=== PATIENT | female | born 1940 | race Caucasian/White ===

== ENCOUNTER 2017-09-15 20:08 | Emergency (ER) | payer OTHER, MEDICARE ==
--- OUTSIDE RECORDS SUMMARY | 2017-09-15 20:10 | XMS REPORT | Clinical Summary ---
:1940 Author Organization [facility] Address [address] [place] [address] Care Team Providers Name Role Phone Karla Blood PA-C Primary Care Provider Allergies Active Allergy Reactions Severity Noted Date Comments Codeine GI Intolerance 01/23/2017 Current Medications Prescription Sig. Disp. Refills Start Date End Date Status allopurinol (ZYLOPRIM) 300 daily. 01/13/2016 Active MG tablet atorvastatin (LIPITOR) 20 daily. 12/13/2015 Active MG tablet BUMETanide (BUMEX) 1 MG 2 (two) times a 12/13/2015 Active tablet day. clopidogrel (PLAVIX) 75 mg daily. 01/13/2016 Active tablet glimepiride (AMARYL) 4 MG 2 (two) times a 12/30/2015 Active tablet day. SYNTHROID 150 mcg tablet daily. 12/31/2015 Active losartan (COZAAR) 25 MG daily. 02/01/2016 Active tablet metFORMIN XR 1,000 mg 2 (two) 12/29/2015 Active (GLUCOPHAGE-XR) 500 mg 24 times a day. hr tablet metOLazone (ZAROXOLYN) 5 01/26/2016 Active MG tablet metoprolol succinate XL 01/13/2016 Active (TOPROL-XL) 50 mg 24 hr tablet KLOR-CON M20 20 mEq CR 12/13/2015 Active tablet spironolactone (ALDACTONE) 2 (two) times a 02/11/2016 Active 25 MG tablet day. niacin (NIASPAN Take 500 mg by Active EXTENDED-RELEASE) 500 MG mouth nightly. CR tablet carisoprodol (SOMA) 350 MG Take 350 mg by Active tablet mouth 4 (four) times a day as needed for muscle spasms. ergocalciferol (VITAMIN Take 50,000 Units Active D2) 50,000 unit capsule by mouth once a week. aspirin 325 MG tablet Take 325 mg by Active mouth daily. CALCIUM CARB/VIT Take by mouth 2 Active D3/MINERALS (CALCIUM 600 + (two) times a day. MINERALS ORAL) ASCORBATE CALCIUM (VITAMIN Take by mouth 2 Active C ORAL) (two) times a day. magnesium oxide (MAG-OX) Take 400 mg by Active 400 mg tablet mouth daily. FERROUS SULFATE, DRIED Take by mouth 2 Active (IRON, DRIED, ORAL) (two) times a day. cinnamon bark 500 mg Take 500 mg by Active capsule mouth daily. cyanocobalamin 1000 MCG Take 1,000 mcg by Active tablet mouth daily. omega-3 fatty Take by mouth. Active acids-vitamin E (FISH OIL) 1,000 mg capsule biotin 10,000 mcg capsule Take by mouth. Active Active Problems Problem Noted Date Bilateral carpal tunnel syndrome 01/23/2017 Encounters Date Type Specialty Care Team Description 01/23/2017 Office Visit Orthopedic Surgery Rob Hensley Bilateral carpal tunnel III, syndrome (Primary Dx) after 09/14/2016 Family History Medical History Relation Name Comments Stroke Father Neuromuscular disorder Mother Relation Name Status Comments Father Mother Social History Tobacco Use Types Packs/Day Years Used Date Never Smoker Smokeless Tobacco: Never Used Alcohol Use Drinks/Week oz/Week Comments No Sex Assigned at Date Recorded Not on file Last Filed Vital Signs Vital Sign Reading Time Taken Blood Pressure - - Pulse - - Temperature - - Respiratory Rate - - Oxygen Saturation - - Inhaled Oxygen Concentration - - Weight 132 kg (292 lb) 01/23/2017 10:21 AM MULTIMEDIA COORDINATOR Height 160 cm (5' 3") 01/23/2017 10:21 AM MULTIMEDIA COORDINATOR Body Mass Index 51.73 01/23/2017 10:21 AM MULTIMEDIA COORDINATOR Plan of Treatment Health Maintenance Due Date Last Done Comments BREAST CANCER SCREENING 1992 COLON CANCER SCREENING 1992 SHINGRIX VACCINE (#1) 1992 ZOSTER VACCINE 2002 PNEUMOCOCCAL POLYSACCHARIDE VACCINE AGE 65 AND OVER 05/05/2007 PNEUMOCOCCAL-13 05/05/2007 INFLUENZA VACCINE 09/12/2017 Procedures Procedure Name Priority Date/Time Associated Diagnosis Comments ID INJECT CARPAL Routine 01/24/2017 9:32 AM Bilateral carpal Results for this TUNNEL MULTIMEDIA COORDINATOR tunnel syndrome procedure are in the results section. after 09/14/2016 Results Hand/Upper Extremity Injection/Arthrocentesis (01/24/2017 9:32 AM) Narrative Performed At Rob Hensley III, MD 01/24/20179:32 AM Bilateral carpal tunnel syndrome injection Date/Time: 01/23/2017 11:35 AM Consent given by: patient Supporting Documentation Indications: diagnostic and therapeutic Procedure Details Condition: carpal tunnel syndrome Site: Bilateral carpal tunnel Preparation: Patient was prepped and draped in the usual sterile fashion Right side: Needle size: 25 G Approach: anterior Right carpal tunnel medications administered: 40 mg methylPREDNISolone acetate 40 mg/mL; 1 mL lidocaine 10 mg/mL (1 %) Patient tolerance: patient tolerated the procedure well with no immediate complications Left side: Needle size: 25 G Approach: anterior Left carpal tunnel medications administered: 40 mg methylPREDNISolone acetate 40 mg/mL; 1 mL lidocaine 10 mg/mL (1 %) Patient tolerance: patient tolerated the procedure well with no immediate complications after 09/14/2016 Insurance Payer Benefit Plan / Group Subscriber ID Type Phone Address MEDICARE MEDICARE PART A AND B xxxxxxxxxx Medicare [place], [place] AARP AARP SUPPLEMENT xxxxxxxxxxx Commercial
--- OUTSIDE RECORDS SUMMARY | 2017-09-15 20:11 | XMS REPORT | Continuity of Care Document ---
:1940 Author Organization Interface Problems Problem Status Onset Classification Date Comments Source Date Reported BACK PAIN Active 02/04/20 Condition 04/07/2013 Medical 13 Group EDEMA Active 07/23/19 Condition 04/07/2013 Medical 13 Group ARTERIOSCLEROTIC Active 07/23/19 Condition 04/07/2013 Medical HEART DISEASE 13 Group PLEURISY Active 06/06/19 Condition 04/07/2013 Medical 13 Group SPINAL STENOSIS Active 04/09/19 Condition 04/07/2013 Medical 13 Group MORBID OBESITY Active 01/17/20 [facility] SWELLING MASS OR Active 01/16/20 Condition 04/07/2013 [facility] LUMP IN HEAD AND 12 Group NECK 787.1 Active 08/07/19 [facility] 789.00 Active 07/07/19 [facility] OBESITY Active Condition 04/07/2013 Medical Group DM Active Condition 04/07/2013 Medical Group HYPERTENSION Active Condition 04/07/2013 Medical Group ATHEROSCLEROSIS OF Active Condition 04/07/2013 [facility] AORTA Group MORBID OBESITY Active [facility] HEARTBURN Active [facility] Medications Medication Details Route Status Patient Ordering Order Source Instructions Provider Date BUMETANIDE 1 MG 1 or 2 p.o. Active 07/22[facility] Medical TABS q.a.m. 2012 Group CEFTIN 500 MG one p.o. Active 06/05[facility] Medical TABS b.i.d. 2012 Group DEXPAK 10 DAY as directed Active 06/05[facility] Medical 1.5 MG TABS 2012 Group LISINOPRIL-HYDRO 1 QD Active 04/09[facility] CHLOROTHIAZIDE 2013 Group 11/23.5) METFORMIN HCL 1 TID Active 04/09[facility] Medical 500 MG TABS 2012 Group SPIRONOLACTONE 1 QD Active 04/09[facility] Medical 25 MG TABS 2012 Group LEVOXYL 125 MCG tab 1 po daily Active 04/09[facility] Medical TABS 2012 Group (LEVOTHYROXINE SODIUM) D CAPS 1 MONTHLY Active 04/09[facility] Medical 2012 Group PLAVIX 75 MG tab 1po every Active Medical TABS morning 2011 Group TOPROL XL 50 MG tab 1 po every Active Medical [id number] am 2011 Group NIASPAN 500 MG tab 1 po at Active Medical CR-TABS night 2011 Group ATORVASTATIN tab 1 po daily Active Medical CALCIUM 20 MG 2011 Group TABS GLUCOPHAGE XR tab 2 po in am Active Medical 500 MG [id number] andtab 1 po 2011 Group in pm AMARYL 4 MG TABS tab 1 po in am Active Medical 2011 Group KLOR-CON M20 20 tab 1 po in am Active Medical MEQ CR-TABS and tab 1 po 2011 Group in pm Aspirin Low Dose Substitution Active 81 mg oral Allowed 2011 tablet Lactated Ringers 500 mL, Rate: IV No Sadler IV 500 mL 40 ml/hr, Longer 2011 Infuse over: Active 12.5 hr, Route: IV, Dosing Weight 128.182 kg, Total Volume: 500, Start date: 08/10/11 14:37:00, Duration: 30 day, Stop date: 09/09/11 14:36:00 Fish Oil 1000 mg 1,000 mg, 1 PO Active oral capsule cap, PO, BID, 2011 Substitution Allowed, CAP Levoxyl 150 mcg 150 microgram, PO Active (0.15 mg) oral 1 tab, PO, 2011 tablet Daily, 60 tab, Substitution Allowed, TAB Klor-Con M20 20 mEq, 1 tab, PO Active oral tablet, PO, BID, 180 2011 extended release tab, Substitution Allowed, ERTAB glimepiride 4 mg 4 mg, PO, PO Active oral tablet Daily, 90 tab, 2011 Substitution Allowed, TAKE 1 IN AM, TABTAKE 1 IN AM metFORmin 500 mg 500 mg, 1 tab, PO Active oral tablet PO, BID, 60 2011 tab, Substitution Allowed, TAKE 2 IN AM, 1 AT NIGHT, TABTAKE 2 IN AM, 1 AT NIGHT lisinopril 20 mg, PO, PO Active Daily, 2011 Substitution Allowed, TAKE 1/2 TAB DAILY, TABTAKE 1/2 TAB DAILY Lipitor 20 mg 20 mg, 1 tab, PO Active 08/08/ oral tablet PO, Daily, 90 2011 [facility] tab, Substitution Allowed, TAB Niaspan ER 500 500 mg, 1 tab, PO Active 08/08/ mg oral tablet, PO, Bedtime, 2011 extended release 90 tab, Substitution Allowed, ERTAB Plavix 75 mg 75 mg, 1 tab, PO Active oral tablet PO, Daily, 90 2011 [facility] tab, Substitution Allowed, TAB metoprolol 50 mg 50 mg, 1 tab, PO Active oral tablet PO, BID, 180 2011 [facility] tab, Substitution Allowed, TAB Allergies, Adverse Reactions, Alerts Substance Category Reaction Severity Reaction Status Date Comments Source type Reported CODEINE Drug CODEINE Medical allergy 2 Group codeine drug hot Allergy Active allergy flashes, [facility] n/v Darvocet drug hot Allergy Active A500 allergy flashes, [facility] n/v Vicodin drug hot Allergy Active allergy flashes, [facility] n/v BACTRIM Drug BACTRIM Medical allergy Group CYPRO Drug CYPRO Medical allergy Group Immunizations Immunization Date Given Site Status Last Updated Comments Source influenza 11/17/2010 completed Medical immunization (Flu Group Vax) has been administered Results Order Name Results Value Reference Date Interpretation Comments Source Range Chemistry HGBA1C 5.8 % 04/09 Group Chemistry HGBA1C 5.8 % 01/15 Group Chemistry HGBA1C 5.4 % 09/18 Group CHEMISTRY Potassium Lvl 3.6 3.5 - 5.1 08/09 Normal MH meq/L [facility] CHEMISTRY Sodium Lvl 144 135 - 145 08/09 Normal MH meq/L [facility] CHEMISTRY Creatinine 1.0 0.5 - 1.4 08/09 Normal MH Lvl mg/dL [facility] CHEMISTRY Chloride Lvl 107 95 - 109 08/09 Normal MH meq/L [facility] CHEMISTRY Albumin Lvl 3.3 3.5 - 5.0 08/09 LOW MH g/dL [facility] CHEMISTRY Calcium Lvl 8.9 8.5 - 10.5 08/09 Normal MH mg/dL [facility] CHEMISTRY CO2 28 24 - 32 08/09 Normal MH meq/L [facility] CHEMISTRY BUN 21 7 - 22 08/09 Normal MH mg/dL [facility] CHEMISTRY Glucose Lvl 95 70 - 99 08/09 Normal 2Interpretive MH mg/dL /2011 Data: Adult [facility] reference range values reflect the clinical guidelinesof the [place] [employer]. CHEMISTRY Total Protein 7.3 6.4 - 8.4 08/09 Normal MH g/dL /2011 [facility] CHEMISTRY ALT 31 U/L 0 - 65 08/09 Normal [facility] CHEMISTRY Alk Phos 79 U/L 39 - 136 08/09 Normal [facility] CHEMISTRY AST 19 U/L 0 - 37 08/09 Normal [facility] CHEMISTRY Bili Total 0.6 0.2 - 1.3 08/09 Normal MH mg/dL /2011 [facility] CHEMISTRY B/C Ratio 21 6 - 25 08/09 Normal [facility] CHEMISTRY AGAP 12.6 10.0 - 08/09 Normal MH meq/L 20.0 /2011 [facility] CHEMISTRY A/G Ratio 0.8 0.7 - 1.6 08/09 Normal [facility] CHEMISTRY Globulin 4.0 2.0 - 4.0 08/09 Normal MH g/dL [facility] HEMATOLOGY Basophils # 0.0 0.0 - 0.2 08/09 Normal MH K/CMM [facility] HEMATOLOGY Monocytes # 0.6 0.0 - 0.8 08/09 Normal MH K/CM [facility] HEMATOLOGY Lymphocytes # 1.8 1.0 - 5.5 08/09 Normal MH K/CM [facility] HEMATOLOGY Eosinophils # 0.2 0.0 - 0.5 08/09 Normal MH K/CM [facility] HEMATOLOGY Segs 66.9 % 45.0 - 08/09 Normal MH 75.0 /2011 [facility] HEMATOLOGY Lymphocytes 22.5 % 20.0 - 08/09 Normal MH 40.0 /2012 [facility] HEMATOLOGY Monocytes 7.8 % 2.0 - 12.0 08/09 Normal MH [facility] HEMATOLOGY Eosinophils 2.5 % 0.0 - 4.0 08/09 Normal MH [facility] HEMATOLOGY Basophils 0.3 % 0.0 - 1.0 08/09 Normal MH [facility] HEMATOLOGY Segs-Bands # 5.3 1.5 - 8.1 08/09 Normal MH K/CMM [facility] HEMATOLOGY Platelet 251 133 - 450 08/09 Normal MH K/CMM [facility] HEMATOLOGY MCH 29.5 pg 27.0 - 08/09 Normal MH 31.0 /2011 [facility] HEMATOLOGY RDW 14.5 % 11.5 - 08/09 Normal MH 14.5 /2011 [facility] HEMATOLOGY MCV 91.6 fL 81.0 - 08/09 Normal MH 99.0 /2011 [facility] HEMATOLOGY MCHC 32.2 32.0 - 08/09 Normal MH g/dL 36.0 /2011 [facility] HEMATOLOGY MPV 7.6 fL 7.4 - 10.4 08/09 Normal MH /2011 [facility] HEMATOLOGY Hct 37.5 % 36.0 - 08/09 Normal MH 48.0 /2011 [facility] HEMATOLOGY WBC 8.0 3.7 - 10.4 08/09 Normal MH K/CMM /2011 [facility] HEMATOLOGY Hgb 12.1 12.0 - 08/09 Normal MH g/dL 16.0 /2011 [facility] HEMATOLOGY RBC 4.09 4.20 - 08/09 LOW MH M/CMM 5.40 /2011 [facility] BEDSIDE Gluc POC 78 70 - 99 08/09 Normal 1Interpretive GLUCOSE Lifscn mg/dL /2011 Data: [facility] TESTING Upper Reportable Limit: 200 mg/dL. Cloth Handler PAP SMEAR Done 06/20 Medical /2011 Group Vital Signs Vital Sign Value Date Comments Source Weight 285.3 02/03/2013 Medical Group Heart Rate 72 02/03/2013 Medical Group Systolic (mm Hg) 135 02/03/2013 Medical Group Diastolic (mm Hg) 88 02/03/2013 Medical Group Weight 282 07/29/2012 Medical Group Heart Rate 73 07/29/2012 Medical Group Systolic (mm Hg) 116 07/29/2012 Medical Group Diastolic (mm Hg) 63 07/29/2012 Medical Group Weight 287.3 07/22/2012 Medical Group Heart Rate 80 07/22/2012 Medical Group Systolic (mm Hg) 136 07/22/2012 Medical Group Diastolic (mm Hg) 85 07/22/2012 Medical Group Heart Rate 90 06/05/2012 Medical Group Weight 275 06/05/2012 Medical Group Systolic (mm Hg) 120 06/05/2012 Medical Group Diastolic (mm Hg) 86 06/05/2012 Medical Group Weight 273 04/09/2012 Medical Group Heart Rate 73 04/09/2012 Medical Group Systolic (mm Hg) 120 04/09/2012 Medical Group Diastolic (mm Hg) 69 04/09/2012 Medical Group Weight 176.13 01/16/2012 Medical Group Respitory Rate 16 01/16/2012 Medical Group Heart Rate 74 01/16/2012 Medical Group Systolic (mm Hg) 114 01/16/2012 Medical Group Diastolic (mm Hg) 60 01/16/2012 Medical Group Height 63 09/19/2011 Medical Group Weight 285 09/19/2011 Medical Group Temperature Oral (F) 98 F 09/19/2011 Medical Group Heart Rate 76 09/19/2011 Medical Group Systolic (mm Hg) 106 09/19/2011 Medical Group Diastolic (mm Hg) 60 09/19/2011 Medical Group Heart Rate 89 08/10/2011 [facility] Respitory Rate 18 08/10/2011 [facility] Diastolic (mm Hg) 68 08/10/2011 [facility] Systolic (mm Hg) 108 08/10/2011 [facility] Respitory Rate 16 08/10/2011 [facility] Heart Rate 72 08/10/2011 [facility] Systolic (mm Hg) 109 08/10/2011 [facility] Diastolic (mm Hg) 54 08/10/2011 [facility] Respitory Rate 16 08/10/2011 [facility] Heart Rate 76 08/10/2011 [facility] Systolic (mm Hg) 100 08/10/2011 [facility] Diastolic (mm Hg) 49 08/10/2011 [facility] Weight 128.182 08/09/2011 [facility] Height 160.02 cm 08/09/2011 [facility] Encounters Location Location Encounter Encounter Reason Attending ADM DC Status Source Details Type Number For Provider Date Date Visit TREVOR [id number] JIMMY 08/09 08/09 Active [facility] [place] [id number] [place] 01/21 Active [facility] 0 [facility] [place] [facility] Lab Report [id number] Karla 04/07 04/07 Markos 67792 MD Deanna /2013 [facility] [id number] SLEEP LAB 04/08 Active [facility] [id number] SLEEP LAB 04/13 Active [facility] [id number] SLEEP LAB 11/02 [facility] [id number] SLEEP LAB 11/08 Active [facility] TREVOR [id number] 789.00 JIMMY Cancel [facility] 0 [facility] Outpatient [id number] MORBID JIMMY Cancel [facility] 2 OBESITY [facility] Procedures Procedure Code Date Perfomer Comments Source diabetic foot [id number] 02/03/2013 yes Medical check Group diabetic foot [id number] 07/29/2012 yes Medical check Group diabetic foot [id number] 07/22/2012 yes Medical check Group diabetic foot [id number] 06/05/2012 yes Medical check Group mammogram [id number] 04/15/2012 Completed Medical Group diabetic foot [id number] 04/09/2012 yes Medical check Group diabetic foot [id number] 01/16/2012 yes Medical check Group diabetic foot [id number] 09/19/2011 yes Medical check Group mammogram [id number] 04/17/2011 Done Medical Group vaginal Pap smear 30056 06/20/2010 Done Medical results Group
--- OUTSIDE RECORDS SUMMARY | 2017-09-15 20:12 | XMS REPORT | CCD ---
:1940 Author Organization [facility] Care Team Providers Name Role Phone Yonis Sadler Referring Provider Allergies, Adverse Reactions, Alerts Substance Reaction Status codeine hot flashes, n/v Active Darvocet A500 hot flashes, n/v Active Vicodin hot flashes, n/v Active
--- OUTSIDE RECORDS SUMMARY | 2017-09-15 20:12 | XMS REPORT | Continuity of Care Document ---
:1940 Author Organization [facility] Care Team Providers Name Role Phone MD Deanna, Karla Unavailable Unavailable Insurance Providers Payer name Policy type / Policy ID Covered green party ID Policy [place] Coverage type AARP COB SECONDARY AARP COB SECONDARY MCR MEDICARE PRIMARY MEDICARE [place]: [place] AARP HEALTHCARE OPTIONS (MEDICARE SUPPLEMENT Encounters Encounter Performer Location Date Lab Report Karla Huerta MD [facility] [place] Allergies, Adverse Reactions, Alerts Type Substance Reaction Status Drug allergy CODEINE Active Drug allergy BACTRIM Active Drug allergy CYPRO Active Problems Problem Effective Dates Problem Status OBESITY Active DM Active HYPERTENSION Active ATHEROSCLEROSIS OF AORTA Active SWELLING MASS OR LUMP IN HEAD AND NECK Jan 16, 2012 Active SPINAL STENOSIS Apr 09, 2012 Active PLEURISY Jun 05, 2012 Active EDEMA Jul 22, 2012 Active ARTERIOSCLEROTIC HEART DISEASE Jul 22, 2012 Active BACK PAIN Feb 03, 2013 Active Procedures Date Description Comments Apr 17, 2011 mammogram Done June 20, 2010 vaginal Pap smear results Done Sep 19, 2011 diabetic foot check yes Jan 16, 2012 smoking status never smoker Jan 16, 2012 diabetic foot check yes Apr 09, 2012 diabetic foot check yes Apr 15, 2012 mammogram Completed Jun 05, 2012 diabetic foot check yes Jul 22, 2012 diabetic foot check yes Jul 29, 2012 diabetic foot check yes Feb 03, 2013 diabetic foot check yes Medications Medication Instructions Start Date Status PLAVIX 75 MG TABS tab 1po every morning Sep 19, 2011 Active TOPROL XL 50 MG [id number] tab 1 po every am Sep 19, 2011 Active NIASPAN 500 MG CR-TABS tab 1 po at night Sep 19, 2011 Active ATORVASTATIN CALCIUM 20 MG TABS tab 1 po daily Sep 19, 2011 Active GLUCOPHAGE XR 500 MG [id number] tab 2 po in am andtab 1 po in Sep 19, 2011 Active pm AMARYL 4 MG TABS tab 1 po in am Sep 19, 2011 Active KLOR-CON M20 20 MEQ CR-TABS tab 1 po in am and tab 1 po in Sep 19, 2011 Active pm LISINOPRIL-HYDROCHLOROTHIAZIDE 1 QD Apr 09, 2012 Active 11/23.5) METFORMIN HCL 500 MG TABS 1 TID Apr 09, 2012 Active SPIRONOLACTONE 25 MG TABS 1 QD Apr 09, 2012 Active LEVOXYL 125 MCG TABS tab 1 po daily Apr 09, 2012 Active (LEVOTHYROXINE SODIUM) D CAPS 1 MONTHLY Apr 09, 2012 Active CEFTIN 500 MG TABS one p.o. b.i.d. Jun 05, 2012 Active DEXPAK 10 DAY 1.5 MG TABS as directed Jun 05, 2012 Active BUMETANIDE 1 MG TABS 1 or 2 p.o. q.a.m. Jul 22, 2012 Active Immunizations Vaccine Date Status influenza immunization (Flu Vax) has been administered Nov 17, 2010 completed Vital Signs Date Description Test Result Sep 19, 2011 height E&M - 8302-2 HEIGHT 63 in Sep 19, 2011 weight E&M - 3141-9 WEIGHT 285 lb Sep 19, 2011 temperature E&M TEMPERATURE 98 deg f Sep 19, 2011 pulse rate E&M - 8867-4 PULSE RATE 76 /min Sep 19, 2011 blood pressure, systolic - 8480-6 BP SYSTOLIC 106 mm Hg Sep 19, 2011 blood pressure, diastolic - 8462-4 BP DIASTOLIC 60 mm Hg Jan 16, 2012 weight E&M - 3141-9 WEIGHT 176.13 lb Jan 16, 2012 respiratory rate E&M - 9279-1 RESP RATE 16 /min Jan 16, 2012 pulse rate E&M - 8867-4 PULSE RATE 74 /min Jan 16, 2012 blood pressure, systolic - 8480-6 BP SYSTOLIC 114 mm Hg Jan 16, 2012 blood pressure, diastolic - 8462-4 BP DIASTOLIC 60 mm Hg Apr 09, 2012 weight E&M - 3141-9 WEIGHT 273 lb Apr 09, 2012 pulse rate E&M - 8867-4 PULSE RATE 73 /min Apr 09, 2012 blood pressure, systolic - 8480-6 BP SYSTOLIC 120 mm Hg Apr 09, 2012 blood pressure, diastolic - 8462-4 BP DIASTOLIC 69 mm Hg Jun 05, 2012 pulse rate E&M - 8867-4 PULSE RATE 90 /min Jun 05, 2012 weight E&M - 3141-9 WEIGHT 275 lb Jun 05, 2012 blood pressure, systolic - 8480-6 BP SYSTOLIC 120 mm Hg Jun 05, 2012 blood pressure, diastolic - 8462-4 BP DIASTOLIC 86 mm Hg Jul 22, 2012 weight E&M - 3141-9 WEIGHT 287.3 lb Jul 22, 2012 pulse rate E&M - 8867-4 PULSE RATE 80 /min Jul 22, 2012 blood pressure, systolic - 8480-6 BP SYSTOLIC 136 mm Hg Jul 22, 2012 blood pressure, diastolic - 8462-4 BP DIASTOLIC 85 mm Hg Jul 29, 2012 weight E&M - 3141-9 WEIGHT 282 lb Jul 29, 2012 pulse rate E&M - 8867-4 PULSE RATE 73 /min Jul 29, 2012 blood pressure, systolic - 8480-6 BP SYSTOLIC 116 mm Hg Jul 29, 2012 blood pressure, diastolic - 8462-4 BP DIASTOLIC 63 mm Hg Feb 03, 2013 weight E&M - 3141-9 WEIGHT 285.3 lb Feb 03, 2013 pulse rate E&M - 8867-4 PULSE RATE 72 /min Feb 03, 2013 blood pressure, systolic - 8480-6 BP SYSTOLIC 135 mm Hg Feb 03, 2013 blood pressure, diastolic - 8462-4 BP DIASTOLIC 88 mm Hg Results Date Description Test Name Value Reference Interpretation Status Sep 19, 2011 hemoglobin A1C, HGBA1C 5.4 % blood, as % of total hemoglobin Jan 16, 2012 hemoglobin A1C, HGBA1C 5.8 % blood, as % of total hemoglobin Apr 09, 2012 hemoglobin A1C, HGBA1C 5.8 % blood, as % of total hemoglobin June 20, 2010 vaginal Pap smear PAP SMEAR Done null results
--- OUTSIDE RECORDS SUMMARY | 2017-09-15 20:12 | XMS REPORT | CCD ---
:1940 Author Organization [facility] Care Team Providers Name Role Phone Yonis Sadler Referring Provider Allergies, Adverse Reactions, Alerts Substance Reaction Status codeine hot flashes, n/v Active Darvocet A500 hot flashes, n/v Active Vicodin hot flashes, n/v Active Medications Medication Instructions Start Date End Date Status Klor-Con M20 oral tablet, 20 mEq, 1 tab, PO, BID, 08/09/2011 Ordered extended release 180 tab, Substitution Allowed, ERTAB glimepiride 4 mg oral 4 mg, PO, Daily, 90 tab, Substitution Allowed, TAKE 1 IN AM, TAB 08/09/2011 Ordered tablet TAKE 1 IN AM metFORmin 500 mg oral 500 mg, 1 tab, PO, BID, 60 tab, Substitution Allowed, TAKE 2 IN AM, 1 AT NIGHT, TAB 08/09/2011 Ordered tablet TAKE 2 IN AM, 1 AT NIGHT lisinopril 20 mg, PO, Daily, Substitution Allowed, TAKE 1/2 TAB DAILY, TAB Ordered TAKE 1/2 TAB DAILY Lipitor 20 mg oral tablet 20 mg, 1 tab, PO, Daily, 08/09/2011 Ordered 90 tab, Substitution Allowed, TAB Fish Oil 1000 mg oral 1,000 mg, 1 cap, PO, BID, 08/09/2011 Ordered capsule Substitution Allowed, CAP Niaspan ER 500 mg oral 500 mg, 1 tab, PO, 08/09/2011 Ordered tablet, extended release Bedtime, 90 tab, Substitution Allowed, ERTAB Plavix 75 mg oral tablet 75 mg, 1 tab, PO, Daily, 08/09/2011 Ordered 90 tab, Substitution Allowed, TAB metoprolol 50 mg oral 50 mg, 1 tab, PO, BID, 08/09/2011 Ordered tablet 180 tab, Substitution Allowed, TAB Levoxyl 150 mcg (0.15 mg) 150 microgram, 1 tab, PO, 08/09/2011 Ordered oral tablet Daily, 60 tab, Substitution Allowed, TAB Lactated Ringers IV 500 500 mL, Rate: 40 ml/hr, 08/10/2011 08/10/2011 Discontinued mL Infuse over: 12.5 hr, Route: IV, Dosing Weight 128.182 kg, Total Volume: 500, Start date: 08/10/11 14:37:00, Duration: 30 day, Stop date: 09/09/11 14:36:00 Aspirin Low Dose 81 mg Substitution Allowed 08/10/2011 Ordered oral tablet Vital Signs Most recent to oldest 1 2 3 [Reference Range]: Height 160.02 cm (08/09/2011 13:39:00) Systolic Blood Pressure 108 mmHg 109 mmHg 100 mmHg [90-140 mmHg] (08/10/2011 14:45:00) (08/10/2011 14:30:00) (08/10/2011 14:15: 00) Diastolic Blood Pressure 68 mmHg 54 mmHg 49 mmHg [60-90 mmHg] (08/10/2011 14:45:00) *LOW* *LOW* (08/10/2011 14:30:00) (08/10/2011 14:15:00) Respiratory Rate [14-20 18 BRMIN 16 BRMIN 16 BRMIN BRMIN] (08/10/2011 14:45:00) (08/10/2011 14:30:00) (08/10/2011 14:15:00) Peripheral Pulse Rate 89 bpm 72 bpm 76 bpm [60-100 bpm] (08/10/2011 14:45:00) (08/10/2011 14:30:00) (08/10/2011 14:15: 00) Weight 128.182 kg (08/09/2011 13:39:00) Results BEDSIDE GLUCOSE TESTING Most recent to oldest [Reference Range]: 1 Gluc POC Lifscn [70-99 mg/dL] 78 mg/dL 1 (08/10/2011 13:52:00) 1Interpretive Data: Upper Reportable Limit: 200 mg/dL.CHEMISTRY Most recent to oldest [Reference Range]: 1 Sodium Lvl [135-145 mEq/L] 144 mEq/L (08/10/2011 15:03:00) Potassium Lvl [3.5-5.1 mEq/L] 3.6 mEq/L (08/10/2011 15:03:00) Chloride Lvl [95-109 mEq/L] 107 mEq/L (08/10/2011 15:03:00) CO2 [24-32 mEq/L] 28 mEq/L (08/10/2011:03:00) AGAP [10.0-20.0 mEq/L] 12.6 mEq/L (08/10/2011 15:03:00) Creatinine Lvl [0.5-1.4 mg/dL] 1.0 mg/dL (08/10/2011 15:03:00) BUN [7-22 mg/dL] 21 mg/dL (08/10/2011 15:03:00) B/C Ratio [6-25] 21 (08/10/2011 15:03:00) Glucose Lvl [70-99 mg/dL] 95 mg/dL 2 (08/10/2011 15:03:00) Total Protein [6.4-8.4 g/dL] 7.3 g/dL (08/10/2011 15:03:00) Albumin Lvl [3.5-5.0 g/dL] 3.3 g/dL *LOW* (08/10/2011 15:03:00) Globulin [2.0-4.0 g/dL] 4.0 g/dL (08/10/2011 15:03:00) A/G Ratio [0.7-1.6] 0.8 (08/10/2011 15:03:00) Calcium Lvl [8.5-10.5 mg/dL] 8.9 mg/dL (08/10/2011 15:03:00) ALT [0-65 U/L] 31 U/L (08/10/2011 15:03:00) AST [0-37 U/L] 19 U/L (08/10/2011 15:03:00) Alk Phos [39-136 U/L] 79 U/L (08/10/2011 15:03:00) Bili Total [0.2-1.3 mg/dL] 0.6 mg/dL (08/10/2011 15:03:00) 2Interpretive Data: Adult reference range values reflect the clinical guidelinesof the [place] [employer].HEMATOLOGY Most recent to oldest [Reference Range]: 1 WBC [3.7-10.4 K/CMM] 8.0 K/CMM (08/10/2011:03:00) RBC [4.20-5.40 M/CMM] 4.09 M/CMM *LOW* (08/10/2011 15:03:00) Hgb [12.0-16.0 g/dL] 12.1 g/dL (08/10/2011:03:00) Hct [36.0-48.0 %] 37.5 % (08/10/2011:03:00) MCV [81.0-99.0 fL] 91.6 fL (08/10/2011::00) MCH [27.0-31.0 pg] 29.5 pg (08/10/2011:03:00) MCHC [32.0-36.0 g/dL] 32.2 g/dL (08/10/2011:03:00) RDW [11.5-14.5 %] 14.5 % (08/10/2011:03:00) Platelet [133-450 K/CMM] 251 K/CMM (08/10/2011:03:00) MPV [7.4-10.4 fL] 7.6 fL (08/10/2011:03:00) Segs [45.0-75.0 %] 66.9 % (08/10/2011:03:00) Lymphocytes [20.0-40.0 %] 22.5 % (08/10/2011:03:00) Monocytes [2.0-12.0 %] 7.8 % (08/10/2011:03:00) Eosinophils [0.0-4.0 %] 2.5 % (08/10/2011:03:00) Basophils [0.0-1.0 %] 0.3 % (08/10/2011:03:00) Segs-Bands # [1.5-8.1 K/CMM] 5.3 K/CMM (08/10/2011 15:03:00) Lymphocytes # [1.0-5.5 K/CMM] 1.8 K/CMM (08/10/2011 15:03:00) Monocytes # [0.0-0.8 K/CMM] 0.6 K/CMM (08/10/2011 15:03:00) Eosinophils # [0.0-0.5 K/CMM] 0.2 K/CMM (08/10/2011 15:03:00) Basophils # [0.0-0.2 K/CMM] 0.0 K/CMM (08/10/2011 15:03:00)
[2017-09-15 21:33] LABS: Urine Blood 1+ (NEG); Urine Glucose NEGATIVE (NEG); Urine Protein NEGATIVE (NEG); Urine pH 5.5 (5.0-7.0)
[2017-09-15 22:01] LABS: Absolute Lymphocytes (CBC) 1.7 K/uL (0.7-4.9); Absolute Monocytes 0.7 K/uL (0.1-1.3); Absolute Neutrophil 5.7 K/uL (1.8-8.0); Eosinophils % 2.3 % (0-4.4); Hematocrit 33.9 % (36.0-45.0); Lymphocytes % 20.4 % (15.3-44.8); MCH 31.2 pg (27.0-35.0); MPV 8.5 fL (7.6-11.3); Monocytes % 7.8 % (3.3-12.3); RBC Red Blood Cell Count 3.61 M/uL (3.86-4.86)
[2017-09-15 22:02] LABS: Urine Bacteria <20 /HPF (<20); Urine RBC <5 /HPF (NONE SEEN)
[2017-09-15 22:03] LABS: Calcium Oxalate Crystals- Ur MODERATE (NONE SEEN); Urine Culture Reflex Order NOT NEEDED
[2017-09-15 22:44] LABS: Protime INR 0.97
[2017-09-15 22:53] LABS: ALT/SGPT 35 U/L (12-78); AST/SGOT 28 U/L (15-37); Albumin 3.3 g/dL (3.4-5.0); Alkaline Phosphatase 74 U/L (45-117); BUN Blood Urea Nitrogen 24 mg/dL (7-18); Bicarbonate 33 mmol/L (21-32); Bilirubin Direct < 0.1 mg/dL (0-0.2); Bilirubin Total 0.2 mg/dL (0.2-1.0); Glucose Level 122 mg/dL (74-106); Lipase 182 U/L (73-393); Sodium Level 141 mmol/L (136-145)
--- NOTE | 2017-09-16 00:38 | ER ---
Nurse's Notes [facility] Name: Stanley Metz Age: 77 yrs Sex: Female : 1940 Arrival Date: 09/15/2017 Time: 20:09 Bed 6 Private MD: Karla Huerta Diagnosis: Rectal bleeding;Diverticulosis of large intestine without perforation or abscess with bleeding Presentation: 09/15 20:37 Presenting complaint: Patient states: "I had a CT scan of the abdomen with contrast aj1 yesterday at [facility]. They have been looking for a blood leakage source since January, I had an endoscopy and a colonoscopy on Sunday and they didn't find anything other than a polyp that he removed and I have no pain. But I had a stool and there was blood in the toilet. It was a lot of blood, and it was a loose stool".States that her hemoglobin has been around 8, she has had some iron transfusions, but she has never had a blood transfusion. Transition of care: patient was not received from another setting of care. Onset of symptoms was September 15, 2017. Risk Assessment: Do you want to hurt yourself or someone else? Patient reports no desire to harm self or others. Initial Sepsis Screen: Does the patient meet any 2 criteria? No. Patient's initial sepsis screen is negative. Does the patient have a suspected source of infection? No. Patient's initial sepsis screen is negative. Care prior to arrival: None. 20:37 Method Of Arrival: Ambulatory aj1 20:37 Acuity: DUKE 3 aj1 Triage Assessment: 20:52 General: Appears in no apparent distress. comfortable, Behavior is calm, cooperative, aj1 appropriate for age. Pain: Denies pain. Neuro: Level of Consciousness is awake, alert, obeys commands. Cardiovascular: Patient's skin is warm and dry. Respiratory: Airway is patent Respiratory effort is even, unlabored, Respiratory pattern is regular, symmetrical. GI: Reports bloody stool. Historical: - Allergies: 20:52 No Known Allergies; aj1 - Home Meds: 20:52 clopidogrel 75 mg oral tab 1 tab once daily [Active]; metoprolol tartrate 25 mg Oral aj1 tab 1 tab once daily [Active]; Niaspan Extended-Release 500 mg Oral Tb24 1 tab once daily [Active]; atorvastatin 20 mg oral tab 1 tab once daily [Active]; allopurinol 300 mg Oral tab 1 tab once daily [Active]; losartan 25 mg oral tab 0.5 tab once daily [Active]; metalazone 5 mg as needed [Active]; carisoprodol 350 mg Oral tab 1 tab as needed [Active]; metformin 1,000 mg Oral tab 1 tab 2 times per day [Active]; glimepiride 4 mg Oral tab 2 tab once daily [Active]; potassium chloride 20 mEq Oral TbER 1 tab 2 times per day [Active]; spironolactone 25 mg Oral tab 0.5 tab 2 times per day [Active]; bumetanide 1 mg Oral tab 1 tab 2 times per day [Active]; levothyroxine 50 mcg tab 1 tab once daily [Active]; Vitamin D Oral 50,000 unit daily [Active]; aspirin 325 mg Oral tab 1 tab once daily [Active]; magnesium oxide 400 mg Oral cap daily [Active]; Iron CR Oral daily [Active]; - PMHx: 20:52 Diabetes - NIDDM; Myocardial infarction; Hypothyroidism; Hyperlipidemia; Hypertension; aj1 - PSHx: 20:52 Hysterectomy; bladder suspension; Knee surgery; Cholecystectomy; aj1 - Immunization history:: Flu vaccine is not up to date. - Social history:: Smoking status: Patient/guardian denies using tobacco. - Ebola Screening: : Patient denies travel to an Ebola-affected area in the 21 days before illness onset. - Family history:: not pertinent. - Hospitalizations: : No recent hospitalization is reported. Screenin:38 Abuse screen: Denies threats or abuse. Denies injuries from another. Nutritional lp1 screening: No deficits noted. Tuberculosis screening: No symptoms or risk factors identified. Fall Risk None identified. Assessment: 21:30 Reassessment: CT notified of patient completing oral contrast at this time. lp1 21:38 General: Appears in no apparent distress. Behavior is calm, cooperative, appropriate lp1 for age. Pain: Denies pain. Neuro: Level of Consciousness is awake, alert, obeys commands, Oriented to person, place, time, situation. Cardiovascular: Patient's skin is warm and dry. Respiratory: Respiratory effort is even, unlabored. GI: Abdomen is obese, Bowel sounds present X 4 quads. Reports bloody stool, x1. : No signs and/or symptoms were reported regarding the genitourinary system. EENT: No signs and/or symptoms were reported regarding the EENT system. Derm: Skin is pink, warm \\T\\ dry. Musculoskeletal: Circulation, motion, and sensation intact. 23:02 Reassessment: Pt left to CT. ea 23:54 Reassessment: Patient and/or family updated on plan of care and expected duration. Pain ea level reassessed. Patient is alert, oriented x 3, equal unlabored respirations, skin warm/dry/pink. Physician at bedside updating on plan of care. 08 00:44 Reassessment: Patient appears in no apparent distress at this time. Patient is alert, aa1 oriented x 3, equal unlabored respirations, skin warm/dry/pink. Discussed d/c \\T\\ f/u instructions with pt; denies questions or concerns at this time Patient denies pain at this time. Vital Signs: 09/15 20:52 BP 112 / 73; Pulse 86; Resp 18; Temp 97.3; Pulse Ox 94% on R/A; Weight 117.93 kg (R); aj1 Height 5 ft. 3 in. (160.02 cm) (R); Pain 0/10; 21:11 BP 116 / 57; Pulse 78; Resp 18; Pulse Ox 95% on R/A; ea 22:00 BP 118 / 58; Pulse 72; Resp 18; Pulse Ox 95% on R/A; ea 23:00 BP 120 / 60; Pulse 70; Resp 18; Pulse Ox 98% on R/A; Pain 0/10; aa1 23:56 BP 118 / 63; Pulse 69; Resp 18; Pulse Ox 95% on R/A; Pain 0/10; aa1 20:52 Body Mass Index 46.06 (117.93 kg, 160.02 cm) aj1 ED Course: 20:09 Patient arrived in ED. ds1 20:09 Karla Huerta is Private Physician. ds1 20:44 Triage completed. aj1 20:52 Arm band placed on Patient placed in an exam room. aj1 21:10 Alesha Hauser, SUN is Primary Nurse. lp1 21:13 Krish Davalos MD is Attending Physician. rn 21:37 Inserted saline lock: 20 gauge in right antecubital area, using aseptic technique. lp1 Blood collected. 21:39 Patient has correct armband on for positive identification. Placed in gown. Bed in low lp1 position. Call light in reach. Pulse ox on. NIBP on. 23:20 CT Abd/Pelvis - W/Contrast In Process Unspecified. EDMS 09/16 00:44 No provider procedures requiring assistance completed. IV discontinued, intact, aa1 bleeding controlled, No redness/swelling at site. Pressure dressing applied. Administered Medications: No medications were administered Outcome: 00:37 Discharge ordered by . rn 00:44 Discharged to home ambulatory, with significant other. aa1 00:44 Condition: good 00:44 Discharge instructions given to patient, Instructed on discharge instructions, follow up and referral plans. Demonstrated understanding of instructions, follow-up care. 00:45 Patient left the ED. aa1 Signatures: Dispatcher [employer] EDFL Katy Diaz, RN RN aj1 Maria G Orozco RN RN aa1 Janette Bray ds1 Krish Davalos MD MD rn Pena, Laura, RN RN lp1 Tata Urias RN RN augustus
--- NOTE | 2017-09-16 00:38 | EDPHYS ---
Physician Documentation [facility] Name: Stanley Metz Age: 77 yrs Sex: Female : 1940 Arrival Date: 09/15/2017 Time: 20:09 Bed 6 Private MD: Karla Huerta ED Physician Krish Davalos HPI: 09/15 23:09 This 77 yrs old Female presents to ER via Ambulatory with complaints of rn Bloody Stools. 23:09 The patient presents to the emergency department with rectal bleeding, a moderate rn amount, bright red blood with bowel movement, in a single episode. Onset: The symptoms/episode began/occurred today. Abdominal pain: none is appreciated. Modifying factors: The symptoms are alleviated by nothing, the symptoms are aggravated by nothing. Severity of symptoms: At their worst the symptoms were moderate in the emergency department the symptoms have improved. The patient has experienced similar episodes in the past. The patient has been recently seen by a physician:. Reports rectal bleeding, intermittent over last few weeks, really since January, has had EGD/colonoscopy this past week, only single polyp, has been off of plavix until 3 days ago, no abd pain, is scheduled for pill endoscopy this next week, no sob/syncope/weakness, no blood transfusions, only iron.. Historical: - Allergies: 20:52 No Known Allergies; aj - Home Meds: 20:52 clopidogrel 75 mg oral tab 1 tab once daily [Active]; metoprolol tartrate 25 mg Oral aj1 tab 1 tab once daily [Active]; Niaspan Extended-Release 500 mg Oral Tb24 1 tab once daily [Active]; atorvastatin 20 mg oral tab 1 tab once daily [Active]; allopurinol 300 mg Oral tab 1 tab once daily [Active]; losartan 25 mg oral tab 0.5 tab once daily [Active]; metalazone 5 mg as needed [Active]; carisoprodol 350 mg Oral tab 1 tab as needed [Active]; metformin 1,000 mg Oral tab 1 tab 2 times per day [Active]; glimepiride 4 mg Oral tab 2 tab once daily [Active]; potassium chloride 20 mEq Oral TbER 1 tab 2 times per day [Active]; spironolactone 25 mg Oral tab 0.5 tab 2 times per day [Active]; bumetanide 1 mg Oral tab 1 tab 2 times per day [Active]; levothyroxine 50 mcg tab 1 tab once daily [Active]; Vitamin D Oral 50,000 unit daily [Active]; aspirin 325 mg Oral tab 1 tab once daily [Active]; magnesium oxide 400 mg Oral cap daily [Active]; Iron CR Oral daily [Active]; - PMHx: 20:52 Diabetes - NIDDM; Myocardial infarction; Hypothyroidism; Hyperlipidemia; Hypertension; aj1 - PSHx: 20:52 Hysterectomy; bladder suspension; Knee surgery; Cholecystectomy; aj1 - Immunization history:: Flu vaccine is not up to date. - Social history:: Smoking status: Patient/guardian denies using tobacco. - Ebola Screening: : Patient denies travel to an Ebola-affected area in the 21 days before illness onset. - Family history:: not pertinent. - Hospitalizations: : No recent hospitalization is reported. ROS: 23:09 Constitutional: Negative for fever, chills, and weight loss, Eyes: Negative for injury, rn pain, redness, and discharge, Neck: Negative for injury, pain, and swelling, Cardiovascular: Negative for chest pain, palpitations, and edema, Respiratory: Negative for shortness of breath, cough, wheezing, and pleuritic chest pain, Abdomen/GI: Negative for abdominal pain, nausea, vomiting, diarrhea, and constipation, MS/Extremity: Negative for injury and deformity, Skin: Negative for injury, rash, and discoloration, Neuro: Negative for headache, weakness, numbness, tingling, and seizure. Exam: 23:09 Constitutional: This is a well developed, well nourished patient who is awake, alert, rn and in no acute distress. Head/Face: Normocephalic, atraumatic. Eyes: Pupils equal round and reactive to light, extra-ocular motions intact. Lids and lashes normal. Conjunctiva and sclera are non-icteric and not injected. Cornea within normal limits. Periorbital areas with no swelling, redness, or edema. Cardiovascular: Regular rate and rhythm with a normal S1 and S2. No gallops, murmurs, or rubs. Normal PMI, no JVD. No pulse deficits. Respiratory: Lungs have equal breath sounds bilaterally, clear to auscultation and percussion. No rales, rhonchi or wheezes noted. No increased work of breathing, no retractions or nasal flaring. Abdomen/GI: Soft, non-tender, with normal bowel sounds. No distension or tympany. No guarding or rebound. No evidence of tenderness throughout. MS/ Extremity: Pulses equal, no cyanosis. Neurovascular intact. Full, normal range of motion. Equal circumference. Neuro: Awake and alert, GCS 15, oriented to person, place, time, and situation. Cranial nerves II-XII grossly intact. Motor strength 5/5 in all extremities. Sensory grossly intact. Cerebellar exam normal. Normal gait. Vital Signs: 20:52 BP 112 / 73; Pulse 86; Resp 18; Temp 97.3; Pulse Ox 94% on R/A; Weight 117.93 kg (R); aj1 Height 5 ft. 3 in. (160.02 cm) (R); Pain 0/10; 21:11 BP 116 / 57; Pulse 78; Resp 18; Pulse Ox 95% on R/A; ea 22:00 BP 118 / 58; Pulse 72; Resp 18; Pulse Ox 95% on R/A; ea 23:00 BP 120 / 60; Pulse 70; Resp 18; Pulse Ox 98% on R/A; Pain 0/10; aa1 23:56 BP 118 / 63; Pulse 69; Resp 18; Pulse Ox 95% on R/A; Pain 0/10; aa1 20:52 Body Mass Index 46.06 (117.93 kg, 160.02 cm) aj1 MDM: 21:13 Patient medically screened. rn 09/16 00:35 Differential diagnosis: diverticulitis, hemorrhoids, diverticulosis, bleeding from rn polyp removal and blood thinner. Data reviewed: vital signs, nurses notes, lab test result(s), radiologic studies, CT scan, and as a result, I will discharge patient. Counseling: I had a detailed discussion with the patient and/or guardian regarding: the historical points, exam findings, and any diagnostic results supporting the discharge/admit diagnosis, lab results, radiology results, the need for outpatient follow up, to return to the emergency department if symptoms worsen or persist or if there are any questions or concerns that arise at home. Special discussion: I discussed with the patient/guardian in detail that at this point there is no indication for admission to the hospital. It is understood, however, that if the symptoms persist or worsen the patient needs to return immediately for re-evaluation. ED course: Pt with single episode of rectal bleeding, no need for transfusion, normal vitals, will dc home with pcp and GI f/u, recommend holding plavix for a couple of days, still getting pill cam done this next week, and to return if doesn't get better, patient wants to go home, states will return if worsens. Most likely bleeding from polyp removal and starting plavix too soon.. 09/15 21:18 Order name: Urine Dipstick--Ancillary (enter results); Complete Time: 23:08 cc 09/15 21:23 Order name: Basic Metabolic Panel; Complete Time: 23:08 rn 09/15 21:23 Order name: CBC with Diff; Complete Time: 23:08 rn 09/15 21:23 Order name: Hepatic Function; Complete Time: 23:08 rn 09/15 21:23 Order name: Lipase; Complete Time: 23:08 rn 09/15 21:23 Order name: Urine Microscopic Only; Complete Time: 23:08 rn 09/15 21:18 Order name: Urine Dipstick-Ancillary (obtain specimen); Complete Time: 21:18 cc 09/15 21:23 Order name: IV Saline Lock; Complete Time: 21:39 rn 09/15 21:23 Order name: Labs collected and sent; Complete Time: 21:39 rn 09/15 21:23 Order name: Urine Dipstick-Ancillary (obtain specimen); Complete Time: 21:39 rn 09/15 21:23 Order name: CT Abd/Pelvis - W/Contrast rn 09/15 21:23 Order name: PT-INR; Complete Time: 23:08 rn 09/15 21:23 Order name: Ptt, Activated; Complete Time: 23:08 rn 09/15 21:23 Order name: Type And Screen; Complete Time: 23:08 rn Administered Medications: No medications were administered Disposition: 09/16/17 00:37 Discharged to Home. Impression: Rectal bleeding, Diverticulosis of large intestine without perforation or abscess with bleeding. - Condition is Stable. - Discharge Instructions: Diverticulosis, Rectal Bleeding, Colonoscopy, Care After. - Medication Reconciliation Form, Thank You Letter, Antibiotic Education, Prescription Opioid Use form. - Follow up: Private Physician; When: As needed; Reason: Recheck today's complaints, Re-evaluation by your physician. - Problem is an ongoing problem. - Symptoms have improved. Signatures: Dispatcher [employer] EDKaty Velazquez RN RN aj1 Maria G Orozco RN RN aa1 Krish Davalos MD MD rn Christian, [place] cc Corrections: (The following items were deleted from the chart) 00:45 00:37 09/16/2017 00:37 Discharged to Home. Impression: Rectal bleeding; Diverticulosis aa1 of large intestine without perforation or abscess with bleeding. Condition is Stable. Forms are Medication Reconciliation Form, Thank You Letter, Antibiotic Education, Prescription Opioid Use. Follow up: Private Physician; When: As needed; Reason: Recheck today's complaints, Re-evaluation by your physician. Problem is an ongoing problem. Symptoms have improved. rn
--- NOTE | 2017-09-16 08:34 | RAD REPORT ---
EXAM DESCRIPTION: CT - Abdomen Pelvis W Contrast - 09/15/2017 11:20 pm CLINICAL HISTORY: Abdominal pain. Hematochezia. Colonoscopy with polyp removal yesterday. COMPARISON: June 2016 ultrasound TECHNIQUE: Computed axial tomography of the abdomen and pelvis was obtained. 100 cc Isovue-300 is ad ministered intravenously. Oral contrast was given. A preliminary report was generated by [employer] and reviewed prior to dictation All CT scans are performed using dose optimization technique as appropriate and may include automated exposure control or mA/KV adjustment according to patient size. FINDINGS: The liver, spleen, pancreas, and adrenals appear unremarkable. Mild renal cortical thinning is presen t perhaps related to prior inflammation. The bowel caliber and wall thickness is normal. There is no evidence of diverticulitis A hysterectomy has been performed. The gallbladder has been removed. Spondylosis involves the lumbar spine resulting in spinal stenosis. Mild anterior subluxation of L4 o n L5 is seen A small hiatal hernia is present. A small umbilical hernia is present IMPRESSION: No acute abnormality is displayed
== END 2017-09-16 00:45 | disposition home or self-care (01) ==
LOC: ER 20:08
DX: K57.31 Diverticulosis of large intestine without perforation or abscess with bleeding (principal); E03.9 Hypothyroidism, unspecified; E78.5 Hyperlipidemia, unspecified; I10 Essential (primary) hypertension
CPT/HCPCS: 36415; 74177; 80048; 80076; 83690; 85025; 85610; 85730; 86850; 86900; 86901; Q9967; 81003; 81015; 99284

== ENCOUNTER 2018-07-23 07:29 | Day surgery (SDC) | payer OTHER, MEDICARE ==
[2018-07-22 16:13] LABS: Ferritin 16.4 ng/mL (8-388)
--- OUTSIDE RECORDS SUMMARY | 2018-07-23 07:32 | XMS REPORT | Clinical Summary ---
:1940 Author Organization [facility] Address [address] [place] [address] Care Team Providers Name Role Phone Karla Blood PA-C Primary Care Provider Allergies Active Allergy Reactions Severity Noted Date Comments Codeine GI Intolerance 01/23/2017 Medications Medication Sig Dispensed Refills Start Date End Date Status allopurinol daily. 0 01/13/2016 Active (ZYLOPRIM) 300 MG tablet atorvastatin daily. 0 12/13/2015 Active (LIPITOR) 20 MG tablet BUMETanide (BUMEX) 1 2 (two) times 0 12/13/2015 Active MG tablet a day. clopidogrel (PLAVIX) daily. 0 01/13/2016 Active 75 mg tablet glimepiride (AMARYL) 2 (two) times 0 12/30/2015 Active 4 MG tablet a day. losartan (COZAAR) 25 daily. 0 02/01/2016 Active MG tablet metFORMIN XR 1,000 mg 2 0 12/29/2015 Active (GLUCOPHAGE-XR) 500 (two) times a mg 24 hr tablet day. metOLazone 0 01/26/2016 Active (ZAROXOLYN) 5 MG tablet metoprolol succinate 0 01/13/2016 Active XL (TOPROL-XL) 50 mg 24 hr tablet KLOR-CON M20 20 mEq Take 20 mEq by 0 12/13/2015 Active CR tablet mouth 2 (two) times a day. spironolactone 2 (two) times 0 02/11/2016 Active (ALDACTONE) 25 MG a day. tablet niacin (NIASPAN Take 500 mg by 0 Active EXTENDED-RELEASE) mouth nightly. 500 MG CR tablet carisoprodol (SOMA) Take 350 mg by 0 Active 350 MG tablet mouth 4 (four) times a day as needed for muscle spasms. ergocalciferol Take 50,000 0 Active (VITAMIN D2) 50,000 Units by mouth unit capsule once a week. aspirin 325 MG Take 325 mg by 0 Active tablet mouth daily. CALCIUM CARB/VIT Take by mouth 0 Active D3/MINERALS (CALCIUM 2 (two) times 600 + MINERALS ORAL) a day. ASCORBATE CALCIUM Take by mouth 0 Active (VITAMIN C ORAL) 2 (two) times a day. magnesium oxide Take 400 mg by 0 Active (MAG-OX) 400 mg mouth daily. tablet FERROUS SULFATE, Take by mouth 0 Active DRIED (IRON, DRIED, 2 (two) times ORAL) a day. cinnamon bark 500 mg Take 500 mg by 0 Active capsule mouth daily. cyanocobalamin 1000 Take 1,000 mcg 0 Active MCG tablet by mouth daily. omega-3 fatty Take by mouth. 0 Active acids-vitamin E (FISH OIL) 1,000 mg capsule biotin 10,000 mcg Take by mouth. 0 Active capsule levothyroxine Take 50 mcg by 0 Active (SYNTHROID, LEVOXYL) mouth every 50 mcg tablet morning. SYNTHROID 150 mcg daily. 0 12/31/2015 Discontinued tablet 8 acetaminophen-codein Take 1-2 30 tablet 0 02/13/2018 e (TYLENOL WITH tablets by 9 CODEINE #3) 300-30 mouth every 4 mg per tablet (four) hours as needed for moderate pain for up to 5 days. Active Problems Problem Noted Date Carpal tunnel syndrome, bilateral 03/19/2018 Overview: Added automatically from request for surgery [id number] Bilateral carpal tunnel syndrome 01/23/2017 Encounters Date Type Specialty Care Team Description 04/01/2018 Office Visit Orthopedic Surgery Marcelino Ling Bilateral lizzy Muniz MD tunnel syndrome (Primary Dx) 03/27/2018 Surgery General Surgery Marcelino Ling Bilateral endoscopic MD Flavio carpal tunnel release 03/27/2018 Anesthesia Event General Surgery Silvia Aguilera FNP 03/27/2018 [facility] General Surgery Marcelino Ling Encounter MD Flavio 03/19/2018 Transcribe Orders Orthopedic Surgery Marcelino iLng Carpal tunnel MD Flavio syndrome, bilateral (Primary Dx) 02/13/2018 Hospital Radiology Marcelino Ling Osteoarthritis of Encounter MD Flavio spine with radiculopathy, cervical region 02/13/2018 Office Visit Orthopedic Surgery Marcelino Ling Bilateral carpal tunnel syndrome (Primary Dx); MD Flavio Osteoarthritis of spine with radiculopathy, cervical region 10/31/2017 Surgery Gastroenterology Hortencia Banerjee, ENTEROSCOPY, SINGLE MD BALLOON, TRANSORAL, USING OVERTUBE w/ablation 10/31/2017 Anesthesia Event Gastroenterology other, Jimmie Aguilar MD 10/31/2017 Hospital Gastroenterology Hortencia Banerjee, Bilateral carpal Encounter MD tunnel syndrome (Primary Dx) after 07/22/2017 Family History Medical History Relation Name Comments Stroke Father Neuromuscular disorder Mother Relation Name Status Comments Father Mother Social History Tobacco Use Types Packs/Day Years Used Date Never Smoker Smokeless Tobacco: Never Used Alcohol Use Drinks/Week oz/Week Comments No Sex Assigned at Date Recorded Not on file Job Start Date Occupation Industry Not on file Not on file Not on file Travel History Travel Start Travel End No recent travel history available. Last Filed Vital Signs Vital Sign Reading Time Taken Blood Pressure 112/57 03/27/2018 2:10 PM [facility] Pulse 70 03/27/2018 2:10 PM [employer] Temperature 36.1 C (97 F) 03/27/2018 1:36 PM [facility] [employer] [facility] Respiratory Rate 22 03/27/2018 1:45 PM [facility] [employer] Oxygen Saturation 93% 03/27/2018 2:10 PM [employer] Inhaled Oxygen Concentration - - Weight 120 kg (264 lb) 03/27/2018 10:52 AM [facility] [employer] [facility] Height 160 cm (5' 3") 03/27/2018 10:52 AM [facility] [employer] [facility] Body Mass Index 46.77 03/27/2018 10:52 AM [facility] Plan of Treatment Health Maintenance Due Date Last Done Comments SHINGLES VACCINES (#1) 1992 65+ PNEUMOCOCCAL VACCINE (1 of 2 - PCV13) 05/05/2007 INFLUENZA VACCINE 09/12/2018 Implants Implanted Type Area Hooker Off Device Shelf Expiration Model / Identifier Date Serial / Lot Multi-Link Vision Stent Stent / Implanted: 2002 (Quantity not on file) / [id number] Procedures Procedure Name Priority Date/Time Associated Diagnosis Comments POC GLUCOSE Routine 03/27/2018 12:52 Results for this PM [facility] [employer] procedure are in the results section. ECG 12-LEAD STAT 03/27/2018 11:04 Results for this AM [employer] procedure are in the results section. POC PANEL 4 Routine 03/27/2018 10:33 Results for this AM [facility] procedure are in the results section. MRI CERVICAL SPINE STAT 02/13/2018 11:32 Osteoarthritis of spine Results for this WO CONTRAST AM [employer] with radiculopathy, procedure are in cervical region the results section. ENTEROSCOPY, 10/31/2017 10:00 Anemia, iron deficiency SINGLE BALLOON, AM CDT TRANSORAL, USING OVERTUBE POC GLUCOSE Routine 10/31/2017 9:15 Results for this AM CDT procedure are in the results section. after 07/22/2017 Results POC glucose (03/27/2018 12:52 PM [facility]IST)Only the most recent of2 resultswithin the time period is included. Pathologist [facility] POC glucose 112 (H) 65 - 99 mg/dL [facility] Comment: [facility] Meter ID: [id number] Lace Weaver: Joon Rader Specimen Performing Organization Address City/[facility]/Zipcode Phone Number [facility] DEPARTMENT OF PATHOLOGY [id number] [place] [address] AND GENOMIC MEDICINE [facility] [id number] [place] [address] ECG 12 lead (03/27/2018 11:04 AM [facility] [employer]) Pathologist [facility] Ventricular rate 70 [facility] Atrial rate 70 [facility] MO interval 200 [facility] QRSD interval 86 [facility] QT interval 458 [facility] QTC interval 494 [facility] P axis 1 57 [facility] QRS axis 1 -54 [facility] T wave axis 6 [facility] EKG impression Normal sinus rhythm-Left axis deviation-Low voltage QRS- Inferior infarct , age undetermined-Cannot rule out Anterior infarct , age undetermined-Abnormal ECG-In automated comparison with ECG of 03-MAY-2012 11:56, -Questionable change in QRS [facility] MUSE duration-Minimal criteria for Anterior infarct are now present-Inferior infarct is now present-Electronically Signed By Chiquita Conley MD ([id number]) on 2018 6:04:32 PM Specimen Narrative Performed At Performing Organization Address City/[facility]/Zipcode Phone Number [facility] [address] [place] [address] POC panel 4 (03/27/2018 10:33 AM [facility]) POC sodium 148 135 - 148 [facility] mmol/L [facility] POC potassium 3.6 3.5 - 5.0 [facility] mmol/L [facility] POC hematocrit 36 (L) 37 - 47 % [facility] POC glucose 107 (H) 65 - 99 mg/dL [facility] POC hemoglobin 12.2 12.0 - 16.0 [facility] Comment: g/dL [place] Meter ID: [id number] [facility] Lace Weaver: Afsaneh Simon Specimen Blood Performing Organization Address City/State/Zipcode Phone Number [facility] DEPARTMENT OF PATHOLOGY [address] [place] [address] AND GENOMIC MEDICINE [facility] [address] MRI Cervical Spine Wo Contrast (02/13/2018 11:32 AM [facility] [employer] [facility]IST) Specimen Narrative Performed At EXAMINATION: MRI CERVICAL SPINE WO CONTRAST [facility] CLINICAL HISTORY: M47.22 Other spondylosis with radiculopathycervical region, see diagnosis COMPARISON:None TECHNIQUE: Multiplanar multisequence noncontrast enhanced examination was performed of the cervical spine. FINDINGS: Vertebral body heights are maintained. The cervicomedullary junction is unremarkable. No cord signal abnormality identified. No focal marrow lesions. No masses are present in the visualized prevertebral soft tissues. Cervical alignment is preserved with normal lordosis. There is no significant spondylolisthesis. Axial images through the disc spaces demonstrate the following: C1-C2: There is narrowing of the atlantoaxial interval with spurring. There is no significant stenosis. C2-C3: No significant posterior disc disease, spinal canal or neural foraminal stenosis. C3-C4: There is loss of disc height with some posterior spondylosis and an asymmetric left posterior paracentral protrusion and osteophytosis extending to the foramen. This results in moderate left late ral canal narrowing and uncovertebral arthrosis and facet disease a results in moderate severe left foraminal stenosis. Correlate for encroachment of the left C4 nerve. The right foramen is widely patent. C4-C5: There is loss of disc height with posterior spondylosis and redundancy of ligamentum flavum with mild canal narrowing to 8.5 mm. Uncovertebral arthrosis and facet disease results in mild to moderate bilateral foraminal stenosis. C5-C6: There is loss of disc height with posterior spondylosis with mild canal narrowing. Uncovertebral arthrosis and facet disease results in mild right and [id number] left foraminal narrowing. C6-C7: There is posterior spondylosis without canal narrowing. Uncovertebral arthrosis and facet disease a results in mild right foraminal narrowing. C7-T1: There is 1 mm anterolisthesis of C7. There is mild right foraminal narrowing. No significant posterior disc disease, spinal canal or neural foraminal stenosis at other visualized levels. IMPRESSION: There is multilevel spondylosis most prominent at C3-4 with a left lateral canal and foraminal protrusion and uncovertebral arthrosis and facet disease resulting in possible encroachment of exiting left C4 nerve. Other levels of less significant spondylosis are detailed above. [facility]-[id number] Procedure Note Hm Interface, Radiology Results Incoming - 02/13/2018 11:50 AM [facility] EXAMINATION: MRI CERVICAL SPINE WO CONTRAST CLINICAL HISTORY: M47.22 Other spondylosis with radiculopathy cervical region , see diagnosis COMPARISON: None TECHNIQUE: Multiplanar multisequence noncontrast enhanced examination was performed of the cervical spine. FINDINGS: Vertebral body heights are maintained. The cervicomedullary junction is unremarkable. No cord signal abnormality identified. No focal marrow lesions. No masses are present in the visualized prevertebral soft tissues. Cervical alignment is preserved with normal lordosis. There is no significant spondylolisthesis. Axial images through the disc spaces demonstrate the following: C1-C2: There is narrowing of the atlantoaxial interval with spurring. There is no significant stenosis. C2-C3: No significant posterior disc disease, spinal canal or neural foraminal stenosis. C3-C4: There is loss of disc height with some posterior spondylosis and an asymmetric left posterior paracentral protrusion and osteophytosis extending to the foramen. This results in moderate left lateral canal narrowing and uncovertebral arthrosis and facet disease a results in moderate severe left foraminal stenosis. Correlate for encroachment of the left C4 nerve. The right foramen is widely patent. C4-C5: There is loss of disc height with posterior spondylosis and redundancy of ligamentum flavum with mild canal narrowing to 8.5 mm. Uncovertebral arthrosis and facet disease results in mild to moderate bilateral foraminal stenosis. C5-C6: There is loss of disc height with posterior spondylosis with mild canal narrowing. Uncovertebral arthrosis and facet disease results in mild right and abiu-tb-[id number] left foraminal narrowing. C6-C7: There is posterior spondylosis without canal narrowing. Uncovertebral arthrosis and facet disease a results in mild right foraminal narrowing. C7-T1: There is 1 mm anterolisthesis of C7. There is mild right foraminal narrowing. No significant posterior disc disease, spinal canal or neural foraminal stenosis at other visualized levels. IMPRESSION: There is multilevel spondylosis most prominent at C3-4 with a left lateral canal and foraminal protrusion and uncovertebral arthrosis and facet disease resulting in possible encroachment of exiting left C4 nerve. Other levels of less significant spondylosis are detailed above. [id number] Performing Organization Address City/State/Zipcode Phone Number [facility] [address] [place] [address] after 07/22/2017 Insurance Payer Benefit Plan / Subscriber ID Effective Dates Phone Address Type Group MEDICARE MEDICARE PART A xxxxxxxxxxx 2007-Present [place], [place] Medicare AND B AARP AARP SUPPLEMENT xxxxxxxxxxx 2015-Present Commercial Advance Directives Patient has advance care planning documents on file. For more information, please contact:[facility] [id number] [place] [address]
--- OUTSIDE RECORDS SUMMARY | 2018-07-23 07:34 | XMS REPORT | CCD ---
:1940 Author Organization [facility] Care Team Providers Name Role Phone Yonis [...] range values reflect the clinical guidelinesof the [place] [employer].HEMATOLOGY Most recent to oldest [Reference [...]
--- OUTSIDE RECORDS SUMMARY | 2018-07-23 07:34 | XMS REPORT | Continuity of Care Document ---
:1940 Author Organization Interface Problems Problem Status Onset Classification Date Comments Source Date Reported BACK PAIN Active 02/04/20 Condition 04/07/2013 Medical 13 Group Coronary Active 07/23/19 Problem 05/28/2018 Data Medical arteriosclerosis<sumner 13 migrated Group p>2</sup> from [employer] on 07/11/14. Edema<sup>4</sup> Active 07/23/19 Problem 05/28/2018 Data Medical 13 migrated Group from [employer] on 07/11/14. EDEMA Active 07/23/19 Condition 04/07/2013 Medical 13 Group ARTERIOSCLEROTIC Active 07/23/19 Condition 04/07/2013 Medical HEART DISEASE 13 Group Pleurisy<sup>8</sup Active 06/06/19 Problem 05/28/2018 Data Medical > 13 migrated Group from [employer] on 07/11/14. PLEURISY Active 06/06/19 Condition 04/07/2013 Medical 13 Group Spinal Active 04/09/19 Problem 05/28/2018 Data [facility] stenosis<sup>9</sup 13 migrated Group > from [employer] on 07/11/14. SPINAL STENOSIS Active 04/09/19 Condition 04/07/2013 Medical 13 Group MORBID OBESITY Active 01/17/20 [facility] [place] of Active 01/16/20 Problem 05/28/2018 Data Medical neck<sup>6</sup> 12 migrated Group from [employer] on 07/11/14. [place] Active 01/16/20 Condition 04/07/2013 Medical LUMP IN HEAD AND 12 Group NECK 787.1 Active 08/07/19 [facility] [place] 789.00 Active 07/07/19 12 [place] Atherosclerosis of Active Problem 05/28/2018 Data Medical aorta<sup>1</sup> migrated Group from [employer] on 07/11/14. Diabetes Active Problem 05/28/2018 Data [facility] mellitus<sup>3</sup migrated Group > from [employer] on 07/11/14. Hypertensive Active Problem 05/28/2018 Data [facility] disorder<sup>5</sup migrated Group > from [facility] on 07/11/14. Obesity<sup>7</sup> Active Problem 05/28/2018 Data Medical migrated Group from [facility] on 07/11/14. Obstructive sleep Active Problem 05/28/2018 Medical apnea, adult Group OBESITY Active Condition 04/07/2013 Medical Group DM Active Condition 04/07/2013 Medical Group HYPERTENSION Active Condition 04/07/2013 Medical Group ATHEROSCLEROSIS OF Active Condition 04/07/2013 Medical AORTA Group HEARTBURN Active [facility] MORBID OBESITY Active [facility] Medications Medication Details Route Status Patient Ordering Order Source Instructions Provider Date BUMETANIDE 1 MG 1 or 2 p.o. Active 07/22[facility] Medical TABS q.a.m. 2012 Group CEFTIN 500 MG one p.o. Active 06/05[facility] Medical TABS b.i.d. 2012 Group DEXPAK 10 DAY as directed Active 06/05[facility] Medical 1.5 MG TABS 2012 Group LISINOPRIL-HYDRO 1 QD Active 04/09[facility] Medical CHLOROTHIAZIDE 2013 Group 11/23.5) METFORMIN HCL 1 TID Active 04/09[facility] Medical 500 MG TABS 2012 Group SPIRONOLACTONE 1 QD Active 04/09[facility] Medical 25 MG TABS 2012 Group LEVOXYL 125 MCG tab 1 po daily Active 04/09[facility] Medical TABS 2012 Group (LEVOTHYROXINE SODIUM) D CAPS 1 MONTHLY Active 04/09[facility] Medical 2012 Group PLAVIX 75 MG tab 1po every Active 09/18[facility] Medical TABS morning 2011 Group TOPROL XL 50 MG tab 1 po every Active 09/18[facility] Medical [id number] am 2011 Group NIASPAN 500 MG tab 1 po at Active 09/18[facility] Medical CR-TABS night 2011 Group ATORVASTATIN tab 1 po daily Active 09/18[facility] Medical CALCIUM 20 MG 2011 Group TABS GLUCOPHAGE XR tab 2 po in am Active 09/18[facility] Medical 500 MG [id number] andtab 1 po 2011 Group in pm AMARYL 4 MG TABS tab 1 po in am Active 09/18[facility] Medical 2011 Group KLOR-CON M20 20 tab 1 po in am Active 08/ Medical MEQ CR-TABS and tab 1 po 2011 Group in pm Aspirin Low Dose Substitution Active 81 mg oral Allowed 2011 [facility] tablet Lactated Ringers 500 mL, Rate: IV No Isaac IV 500 mL 40 ml/hr, Longer 2011 [facility] Infuse over: Active 12.5 hr, Route: IV, Dosing Weight 128.182 kg, Total Volume: 500, Start date: 08/10/11 14:37:00, Duration: 30 day, Stop date: 09/09/11 14:36:00 Fish Oil 1000 mg 1,000 mg, 1 PO Active oral capsule cap, PO, BID, 2011 [facility] Substitution Allowed, CAP Levoxyl 150 mcg 150 microgram, PO Active (0.15 mg) oral 1 tab, PO, 2011 tablet Daily, 60 tab, Substitution Allowed, TAB Klor-Con M20 20 mEq, 1 tab, PO Active oral tablet, PO, BID, 180 2011 [facility] extended release tab, Substitution Allowed, ERTAB glimepiride 4 mg 4 mg, PO, PO Active oral tablet Daily, 90 tab, 2011 [facility] Substitution Allowed, TAKE 1 IN AM, TABTAKE 1 IN AM metFORmin 500 mg 500 mg, 1 tab, PO Active oral tablet PO, BID, 60 2011 [facility] tab, Substitution Allowed, TAKE 2 IN AM, 1 AT NIGHT, TABTAKE 2 IN AM, 1 AT NIGHT lisinopril 20 mg, PO, PO Active Daily, 2011 [facility] Substitution Allowed, TAKE 1/2 TAB DAILY, TABTAKE 1/2 TAB DAILY Lipitor 20 mg 20 mg, 1 tab, PO Active oral tablet PO, Daily, 90 2011 [facility] tab, Substitution Allowed, TAB Niaspan ER 500 500 mg, 1 tab, PO Active mg oral tablet, PO, Bedtime, 2011 [facility] extended release 90 tab, Substitution Allowed, ERTAB Plavix 75 mg 75 mg, 1 tab, PO Active oral tablet PO, Daily, 90 2011 [facility] tab, Substitution Allowed, TAB metoprolol 50 mg 50 mg, 1 tab, PO Active oral tablet PO, BID, 180 2011 [facility] tab, Substitution Allowed, TAB Allergies, Adverse Reactions, Alerts Substance Category Reaction Severity Reaction Status Date Comments Source type Reported CODEINE Drug CODEINE Medical allergy 2 Group codeine<sup Assertion hot Drug Active Data Medical >1</sup> flashes, allergy 2 migrated Group n/v from [employer] on 04/14/15. Originally documented as CODEINE. codeine drug hot Allergy Active allergy flashes, [place] n/v Darvocet Assertion hot Drug Active Medical A500 flashes, allergy Group n/v Vicodin Assertion hot Drug Active Medical flashes, allergy Group n/v sulfamethox Assertion Drug Active Data Medical azole-trime allergy migrated Group thoprim<sup from [employer] >2</sup> Cent[facility]ity on 06/11/14. Originally documented as BACTRIM. BACTRIM Drug BACTRIM Medical allergy Group CYPRO Drug CYPRO Medical allergy Group Immunizations Immunization Date Given Site Status Last Comments Source Updated Hx influenza 11/17/2010 completed Result Medical vaccine-unspecifi Comment: Group ed<sup>1</sup> fluvax. Migrated from OBS ; Data migrated from [employer] on 03/16/2015. influenza 11/17/2010 completed Medical immunization (Flu Group Vax) has been administered Results Order Name Results Value Reference Date Interpretation Comments Source Range Chemistry HGBA1C 5.8 % 04/09 Group Chemistry HGBA1C 5.8 % 01/15 Group Chemistry HGBA1C 5.4 % 09/18 Group CHEMISTRY Potassium Lvl 3.6 3.5 - 5.1 08/09 Normal MH meq/L [facility] CHEMISTRY Sodium Lvl 144 135 - 145 08/09 Normal MH meq/L [facility] CHEMISTRY Creatinine 1.0 0.5 - 1.4 08/09 Normal MH Lvl mg/dL [facility] CHEMISTRY Chloride Lvl 107 95 - 109 08/09 Normal MH meq/L [facility] CHEMISTRY Albumin Lvl 3.3 3.5 - 5.0 08/09 LOW MH g/dL [facility] CHEMISTRY Calcium Lvl 8.9 8.5 - 10.5 08/09 Normal MH mg/dL [facility] CHEMISTRY CO2 28 24 - 32 08/09 Normal MH meq/L [facility] CHEMISTRY BUN 21 7 - 22 08/09 Normal MH mg/dL [facility] CHEMISTRY Glucose Lvl 95 70 - 99 08/09 Normal 2Interpretive MH mg/dL /2011 Data: Adult [facility] reference range values reflect the clinical guidelinesof the [place] [employer]. CHEMISTRY Total Protein 7.3 6.4 - 8.4 08/09 Normal MH g/dL /2011 [facility] CHEMISTRY ALT 31 U/L 0 - 65 08/09 Normal [facility] CHEMISTRY Alk Phos 79 U/L 39 - 136 08/09 Normal [facility] CHEMISTRY AST 19 U/L 0 - 37 08/09 Normal [facility] CHEMISTRY Bili Total 0.6 0.2 - 1.3 08/09 Normal MH mg/dL [facility] CHEMISTRY B/C Ratio 21 6 - 25 08/09 Normal [facility] CHEMISTRY AGAP 12.6 10.0 - 08/09 Normal MH meq/L 20.0 [facility] CHEMISTRY A/G Ratio 0.8 0.7 - 1.6 08/09 Normal [facility] CHEMISTRY Globulin 4.0 2.0 - 4.0 08/09 Normal MH g/dL [facility] HEMATOLOGY Basophils # 0.0 0.0 - 0.2 08/09 Normal MH K/CMM [facility] HEMATOLOGY Monocytes # 0.6 0.0 - 0.8 08/09 Normal MH K/CM [facility] HEMATOLOGY Lymphocytes # 1.8 1.0 - 5.5 08/09 Normal MH K/CM [facility] HEMATOLOGY Eosinophils # 0.2 0.0 - 0.5 08/09 Normal MH K/CM [facility] HEMATOLOGY Segs 66.9 % 45.0 - 08/09 Normal MH 75.0 [facility] HEMATOLOGY Lymphocytes 22.5 % 20.0 - 08/09 Normal MH 40.0 /2011 [facility] HEMATOLOGY Monocytes 7.8 % 2.0 - 12.0 08/09 Normal MH [facility] HEMATOLOGY Eosinophils 2.5 % 0.0 - 4.0 08/09 Normal MH [facility] HEMATOLOGY Basophils 0.3 % 0.0 - 1.0 08/09 Normal MH [facility] HEMATOLOGY Segs-Bands # 5.3 1.5 - 8.1 08/09 Normal MH K/CMM [facility] HEMATOLOGY Platelet 251 133 - 450 08/09 Normal MH K/CMM [facility] HEMATOLOGY MCH 29.5 pg 27.0 - 06/28 Normal MH 31.0 /2011 [facility] HEMATOLOGY RDW 14.5 % 11.5 - 08/09 Normal MH 14.5 /2011 [facility] HEMATOLOGY MCV 91.6 fL 81.0 - 08/09 Normal MH 99.0 /2011 [facility] HEMATOLOGY MCHC 32.2 32.0 - 08/09 Normal MH g/dL 36.0 /2011 [facility] HEMATOLOGY MPV 7.6 fL 7.4 - 10.4 08/09 Normal MH /2011 [facility] HEMATOLOGY Hct 37.5 % 36.0 - 08/09 Normal MH 48.0 /2011 [facility] HEMATOLOGY WBC 8.0 3.7 - 10.4 08/09 Normal MH K/CMM /2011 [facility] HEMATOLOGY Hgb 12.1 12.0 - 08/09 Normal MH g/dL 16.0 /2011 [facility] HEMATOLOGY RBC 4.09 4.20 - 08/09 LOW MH M/CMM 5.40 /2011 [facility] BEDSIDE Gluc POC 78 70 - 99 08/09 Normal 1Interpretive GLUCOSE [facility] mg/dL /2011 Data: [facility] TESTING Upper Reportable Limit: 200 mg/dL. Account Service Associate PAP SMEAR Done 06/20 Medical /2011 Group Vital Signs Vital Sign Value Date Comments Source Weight 123.75 11/08/2017 Medical Group Heart Rate 75 11/08/2017 Medical Group Systolic (mm Hg) 117 11/08/2017 Medical Group Diastolic (mm Hg) 72 11/08/2017 Medical Group Weight 285.3 02/03/2013 Medical Group Heart Rate [...] 89 08/10/2011 [facility] Respitory Rate 18 08/10/2011 [facility] Diastolic (mm Hg) 68 08/10/2011 [facility] Systolic (mm Hg) 108 08/10/2011 [facility] Respitory Rate 16 08/10/2011 [facility] Heart Rate 72 08/10/2011 [facility] Systolic (mm Hg) 109 08/10/2011 [facility] Diastolic (mm Hg) 54 08/10/2011 [facility] Respitory Rate 16 08/10/2011 [facility] Heart Rate 76 08/10/2011 [facility] Systolic (mm Hg) 100 08/10/2011 [facility] Diastolic (mm Hg) 49 08/10/2011 [facility] Weight 128.182 08/09/2011 [facility] Height 160.02 cm 08/09/2011 [facility] Encounters Location Location Encounter Encounter Reason Attending ADM DC Status Source Details Type Number For Provider Date Date Visit [facility] [id number] [place] 08/09 08/09 Active [place] [id number] [place] 01/21 Active [place] [facility] Lab Report [id number] Karla 04/07 04/07 Markos 9[address]12 MD Deanna /2013 [facility] [place] Outpatient [id number] SLEEP LAB 04/08 Active [facility] [place] [id number] SLEEP LAB 04/13 [facility] [place]patient [id number] SLEEP LAB 11/02 Active [facility] [place] Outpatient [id number] SLEEP LAB 11/08 Active [facility] Sleep Outpatient [id number] NURSE 11/08 11/09 Medicine 3 VISIT /2017 [facility] [employer] Outpatient [id number] SLEEP LAB 11/07 Active [facility] [id number] 789.00 JIMMY Cancel [place] [id number] [place] JIMMY [facility]ancel [place] 2 [place] Procedures Procedure Code Date Perfomer Comments Source diabetic foot [id number] 02/03/2013 yes Medical check Group diabetic foot [id number] 07/29/2012 yes Medical check Group diabetic foot [id number] 07/22/2012 yes Medical check Group diabetic foot [id number] 06/05/2012 yes Medical check Group mammogram [id number] 04/15/2012 Completed Medical Group diabetic foot [id number] 04/09/2012 yes Medical check Group diabetic foot [id number] 01/16/2012 yes Medical check Group diabetic foot [id number] 09/19/2011 yes Medical check Group mammogram [id number] 04/17/2011 Done Medical Group vaginal Pap smear [id number] 06/20/2010 Done Medical results Group
--- OUTSIDE RECORDS SUMMARY | 2018-07-23 07:34 | XMS REPORT | CCD ---
:[address] [facility] Care Team Providers Name Role Phone Yonis Sadler Referring Provider Allergies, Adverse Reactions, Alerts Substance Reaction Status codeine hot flashes, n/v Active Darvocet A500 hot flashes, n/v Active Vicodin hot flashes, n/v Active
--- OUTSIDE RECORDS SUMMARY | 2018-07-23 07:34 | XMS REPORT | Continuity of Care Document ---
:1940 Author Organization [facility] Care Team Providers Name Role Phone MD Deanna, Karla Unavailable Unavailable Insurance Providers Payer name Policy type / Policy ID Covered republican ID Policy [place] Coverage type AARP COB SECONDARY AARP COB SECONDARY MCR MEDICARE PRIMARY MEDIC[place] B-[place]: [place] AARP HEALTHCARE OPTIONS (MEDICARE SUPPLEMENT Encounters Encounter Performer Location Date Lab Report Karla Huerta MD [facility] [place] Allergies, Adverse Reactions, Alerts Type Substance [...] 19, 2011 Active TOPROL XL 50 MG [id number] tab 1 po every am Sep 19, 2011 Active NIASPAN 500 MG CR-TABS tab 1 po at night Sep 19, 2011 Active ATORVASTATIN CALCIUM 20 MG TABS tab 1 po daily Sep 19, 2011 Active GLUCOPHAGE XR 500 MG [id number] tab 2 po in am andtab 1 [...]
[2018-07-23] MEDS ORDERED: NA CHLORIDE 0.9% 500 ML ONE (08:40)
[2018-07-23 16:21] LABS: Hematocrit 23.1 % (36.0-45.0)
== END 2018-07-23 15:07 | disposition home or self-care (01) ==
LOC: DS 07:29
PROVIDERS: ATTEND Internal Medicine Hematology & Oncology
DX: D50.0 Iron deficiency anemia secondary to blood loss (chronic) (principal); D63.8 Anemia in other chronic diseases classified elsewhere
CPT/HCPCS: 36415 ×2; 86900; 86850; 86901; 85018; 85014; 82728; 83540; 84466; 36430; P9016 ×2

== ENCOUNTER 2018-08-27 06:45 | Day surgery (SDC) | payer OTHER, MEDICARE ==
--- OUTSIDE RECORDS SUMMARY | 2018-08-27 06:47 | XMS REPORT | Clinical Summary ---
:1940 Author Organization [facility] Address [address] [place] [address] Care Team Providers Name Role Phone Karla [...] Overview: Added automatically from request for surgery [id number] Bilateral carpal tunnel syndrome 01/23/2017 Encounters Date Type Specialty Care Team Description 04/01/2018 Office Visit Orthopedic Surgery Marcelino Ling Bilateral lizzy Muniz MD tunnel syndrome (Primary Dx) 03/27/2018 Surgery General Surgery Marcelino Ling Bilateral endoscopic MD Flavio carpal tunnel release 03/27/2018 Anesthesia Event General Surgery Silvia Aguilera FNP 03/27/2018 [facility] General Surgery Marcelino Ling Encounter MD Flavio 03/19/2018 Transcribe Orders Orthopedic Surgery Marcelino Ling Carpal tunnel MD Flavio syndrome, bilateral (Primary [...] Encounter MD tunnel syndrome (Primary Dx) after 08/26/2017 Family History Medical History Relation Name Comments [...] Taken Blood Pressure 112/57 03/27/2018 2:10 PM DRIVEMATIC MACHINE OPERATOR Pulse 70 03/27/2018 2:10 PM DRIVEMATIC MACHINE OPERATOR Temperature 36.1 C (97 F) 03/27/2018 1:36 PM DRIVEMATIC MACHINE OPERATOR Respiratory Rate 22 03/27/2018 1:45 PM DRIVEMATIC MACHINE OPERATOR Oxygen Saturation 93% 03/27/2018 2:10 PM DRIVEMATIC MACHINE OPERATOR Inhaled Oxygen Concentration - - Weight 120 kg (264 lb) 03/27/2018 10:52 AM DRIVEMATIC MACHINE OPERATOR Height 160 cm (5' 3") 03/27/2018 10:52 AM DRIVEMATIC MACHINE OPERATOR Body Mass Index 46.77 03/27/2018 10:52 AM DRIVEMATIC MACHINE OPERATOR Plan of Treatment Health Maintenance Due Date Last Done Comments COLONOSCOPY SCREENING 1992 SHINGLES VACCINES (#1) 1992 65+ PNEUMOCOCCAL VACCINE (1 of 2 - PCV13) 05/05/2007 INFLUENZA VACCINE 09/12/2018 Implants Implanted Type Area Artist Scientific Device Shelf Expiration Model / Identifier Date Serial / Lot Multi-Link Vision Stent Stent / Implanted: 2002 (Quantity not on file) / [id number] Procedures Procedure Name Priority Date/Time Associated Diagnosis Comments POC GLUCOSE Routine 03/27/2018 12:52 Results for this PM DRIVEMATIC MACHINE OPERATOR procedure are in the results section. ECG 12-LEAD STAT 03/27/2018 11:04 Results for this AM DRIVEMATIC MACHINE OPERATOR procedure are in the results section. POC PANEL 4 Routine 03/27/2018 10:33 Results for this AM DRIVEMATIC MACHINE OPERATOR procedure are in the results section. MRI CERVICAL SPINE STAT 02/13/2018 11:32 Osteoarthritis of spine Results for this WO CONTRAST AM DRIVEMATIC MACHINE OPERATOR with radiculopathy, procedure are in cervical region the results section. ENTEROSCOPY, 10/31/2017 10:00 Anemia, iron deficiency SINGLE BALLOON, AM CDT TRANSORAL, USING OVERTUBE POC GLUCOSE Routine 10/31/2017 9:15 Results for this AM CDT procedure are in the results section. after 08/26/2017 Results POC glucose (03/27/2018 12:52 PM DRIVEMATIC MACHINE OPERATOR)Only the most recent of2 resultswithin the time period is included. Pathologist [facility] POC glucose 112 (H) 65 - 99 mg/dL [facility] Comment: [facility] Meter ID: [id number] Face Hardener: Joon Rader Specimen Performing Organization Address City/[facility] Centercode Phone Number [facility] DEPARTMENT OF PATHOLOGY [id number] [place] [address] AND GENOMIC MEDICINE [facility] [address] ECG 12 lead (03/27/2018 11:04 AM DRIVEMATIC MACHINE OPERATOR) Pathologist [facility] Ventricular rate 70 [facility] MUSE Atrial rate 70 [facility] NC interval 200 [facility] QRSD interval 86 [...] of 03-MAY-2012 11:56, -Questionable change in QRS HM MUSE duration-Minimal criteria for Anterior infarct are now present-Inferior infarct is now present-Electronically Signed By Chiquita Conley MD ([id number]) on 2018 6:04:32 PM Specimen Narrative Performed At Performing Organization Address City/[facility]/Zipcode Phone Number [facility] MUSE [address] [place] [address] POC panel 4 (03/27/2018 10:33 AM DRIVEMATIC MACHINE OPERATOR) POC sodium 148 135 - 148 [facility] mmol/L [facility] POC potassium 3.6 3.5 - 5.0 [facility] mmol/L [facility] POC hematocrit 36 (L) 37 - 47 % [facility] POC glucose 107 (H) 65 - 99 mg/dL [facility] POC hemoglobin 12.2 12.0 - 16.0 [facility] Comment: g/dL [place] Meter ID: [id number] [facility] Face Hardener: Afsaneh Simon Specimen Blood Performing Organization Address City/State/Zipcode Phone Number [facility] DEPARTMENT OF PATHOLOGY [address] [place] [address] AND GENOMIC MEDICINE [facility] [address] MRI Cervical Spine Wo Contrast (02/13/2018 11:32 AM DRIVEMATIC MACHINE OPERATOR) Specimen Narrative Performed At EXAMINATION: MRI CERVICAL SPINE WO CONTRAST RADIANT CLINICAL HISTORY: M47.22 Other spondylosis with [...] facet disease results in mild right and [id number] left foraminal narrowing. C6-C7: There is posterior [...] of less significant spondylosis are detailed above. [facility]-[id number] Procedure Note Hm Interface, Radiology Results Incoming - 02/13/2018 11:50 AM DRIVEMATIC MACHINE OPERATOR EXAMINATION: MRI CERVICAL SPINE WO CONTRAST CLINICAL [...] facet disease results in mild right and [id number]-ji-[id number] left foraminal narrowing. C6-C7: There is posterior [...] of less significant spondylosis are detailed above. [facility]-[id number] Performing Organization Address City/State/Zipcode Phone Number [facility] [address] [place] [address] after 08/26/2017 Insurance Payer Benefit Plan / Subscriber ID Effective Dates Phone Address Type Group MEDICARE MEDICARE PART A xxxxxxxxxxx 2007-Present [place] Medicare AND B AARP AARP SUPPLEMENT xxxxxxxxxxx 2015-Present Commercial Advance Directives Patient has advance care planning documents on file. For more information, please contact:[facility] [id number] [place] [address]
--- OUTSIDE RECORDS SUMMARY | 2018-08-27 06:48 | XMS REPORT | CCD ---
:1940 Author Organization [facility] Care Team Providers Name Role Phone Yonis Sadler Referring Provider Allergies, Adverse Reactions, Alerts Substance Reaction Status codeine hot flashes, n/v Active Darvocet A500 hot flashes, n/v Active Vicodin hot flashes, n/v Active
--- OUTSIDE RECORDS SUMMARY | 2018-08-27 06:48 | XMS REPORT | Continuity of Care Document ---
:1940 Author Organization [employer] [facility] Care Team Providers Name Role Phone [employer] [facility] Unavailable Unavailable Problems Problem Status Onset Classification Date Comments Source Date Reported BACK PAIN Active 02/04/20 Condition 04/07/2013 Medical 13 Group Coronary Active 07/23/19 Problem 05/28/2018 [facility] arteriosclerosis2 13 migrated Group from [employer] on 07/11/14. Edema4 Active 07/23/19 Problem 05/28/2018 [facility] 13 migrated Group from [employer] on 07/11/14. EDEMA Active 07/23/19 Condition 04/07/2013 Medical 13 Group ARTERIOSCLEROTIC Active 07/23/19 Condition 04/07/2013 Medical HEART DISEASE 13 Group Pleurisy8 Active 06/06/19 Problem 05/28/2018 [facility] 13 migrated Group from [employer] on 07/11/14. PLEURISY Active 06/06/19 Condition 04/07/2013 Medical 13 Group Spinal stenosis9 Active 04/09/19 Problem 05/28/2018 [facility] 13 migrated Group from [employer] on 07/11/14. SPINAL STENOSIS Active 04/09/19 Condition 04/07/2013 Medical 13 Group MORBID OBESITY Active 01/17/20 12 [facility] Mass of neck6 Active 01/16/20 Problem 05/28/2018 [facility] 12 migrated Group from [employer] on 07/11/14. SWELLING MASS OR Active 01/16/20 Condition 04/07/2013 Medical LUMP IN HEAD AND 12 Group NECK 787.1 Active 08/07/19 12 [facility] 789.00 Active 07/07/19 12 [facility] Atherosclerosis of Active Problem 05/28/2018 [facility] aorta1 migrated Group from [employer] on 07/11/14. Diabetes mellitus3 Active Problem 05/28/2018 [facility] migrated Group from [employer] on 07/11/14. Hypertensive Active Problem 05/28/2018 [facility] disorder5 migrated Group from [employer] on 07/11/14. Obesity7 Active Problem 05/28/2018 [facility] migrated Group from [employer] on 07/11/14. Obstructive sleep Active Problem 05/28/2018 Medical apnea, adult Group OBESITY Active Condition 04/07/2013 Medical Group DM Active Condition 04/07/2013 Medical Group HYPERTENSION Active Condition 04/07/2013 Medical Group ATHEROSCLEROSIS OF Active Condition 04/07/2013 Medical AORTA Group HEARTBURN Active [facility] MORBID OBESITY Active [facility] Medications Medication Details Route Status Patient Ordering Order Source Instructions Provider Date BUMETANIDE 1 MG 1 or 2 p.o. Active 07/22[facility] Medical TABS q.a.m. 2012 Group CEFTIN 500 MG one p.o. Active 06/05[facility] Medical TABS b.i.d. 2012 Group DEXPAK 10 DAY as directed Active 06/05[facility] Medical 1.5 MG TABS 2012 Group LISINOPRIL-HYDRO 1 QD Active 04/09[facility] Medical CHLOROTHIAZIDE 2012 Group 11/23.5) METFORMIN HCL 1 TID Active 04/09[facility] Medical 500 MG TABS 2012 Group SPIRONOLACTONE 1 QD Active 04/09[facility] Medical 25 MG TABS 2012 Group LEVOXYL 125 MCG tab 1 po daily Active 04/09[facility] Medical TABS 2012 Group (LEVOTHYROXINE SODIUM) D CAPS 1 MONTHLY Active 04/09[facility] Medical 2012 Group PLAVIX 75 MG tab 1po every Active 09/18[facility] Medical TABS morning 2011 Group TOPROL XL 50 MG tab 1 po every Active 09/18[facility] Medical [id number] am 2011 Group NIASPAN 500 MG tab 1 po at Active 09/18[facility] Medical CR-TABS night 2011 Group ATORVASTATIN tab 1 po daily Active Medical CALCIUM 20 MG 2011 Group TABS GLUCOPHAGE XR tab 2 po in am Active Medical 500 MG [id number] andtab 1 po 2011 Group in pm [...] IV 500 mL 40 ml/hr, Longer 2011 [facility] Infuse over: Active 12.5 hr, Route: IV, Dosing Weight 128.182 kg, Total Volume: 500, Start date: 08/10/11 14:37:00, Duration: 30 day, Stop date: 09/09/11 14:36:00 Fish Oil 1000 mg 1,000 mg, 1 PO Active oral capsule cap, PO, BID, 2011 [facility] Substitution Allowed, CAP Levoxyl 150 mcg 150 microgram, PO Active (0.15 mg) oral 1 tab, PO, 2011 tablet Daily, 60 tab, Substitution Allowed, TAB Klor-Con M20 20 mEq, 1 tab, PO Active oral tablet, PO, BID, 180 2011 [facility] extended release tab, Substitution Allowed, ERTAB glimepiride 4 mg 4 mg, PO, PO Active oral tablet Daily, 90 tab, 2011 [facility] Substitution Allowed, TAKE 1 IN AM, TABTAKE 1 IN AM metFORmin 500 mg 500 mg, 1 tab, PO Active oral tablet PO, BID, 60 2011 [facility] tab, Substitution Allowed, TAKE 2 IN AM, 1 AT NIGHT, TABTAKE 2 IN AM, 1 AT NIGHT lisinopril 20 mg, PO, PO Active Daily, 2011 [facility] Substitution Allowed, TAKE 1/2 TAB DAILY, TABTAKE 1/2 TAB DAILY Lipitor 20 mg 20 mg, 1 tab, PO Active oral tablet PO, Daily, 90 2011 [facility] tab, Substitution Allowed, TAB Niaspan ER 500 500 mg, 1 tab, PO Active mg oral tablet, PO, Bedtime, 2011 [facility] extended release 90 tab, Substitution Allowed, ERTAB Plavix 75 mg 75 mg, 1 tab, PO Active oral tablet PO, Daily, 90 2011 [facility] tab, Substitution Allowed, TAB metoprolol 50 mg 50 mg, 1 tab, PO Active oral tablet PO, BID, 180 2011 [facility] tab, Substitution Allowed, TAB Allergies, Adverse [...] Migrated from OBS ; Data migrated from [employer] on 03/16/2015. influenza 11/17/2010 completed Medical immunization (Flu Group Vax) has been administered Results Order Name Results Value Reference Date Interpretation Comments Source Range Chemistry HGBA1C 5.8 04/09/ Medical 2012 Group Chemistry HGBA1C 5.8 01/15/ Medical 2011 Group Chemistry HGBA1C 5.4 09/18/ Medical 2011 Group CHEMISTRY Potassium Lvl 3.6 3.5 - 5.1 08/09/ Normal 2011 [facility] CHEMISTRY Sodium Lvl 144 135 - 145 08/09/ Normal 2011 [facility] CHEMISTRY Creatinine 1.0 0.5 - 1.4 08/09/ Normal Lvl 2011 [facility] CHEMISTRY Chloride Lvl 107 95 - 109 08/09/ Normal 2011 [facility] CHEMISTRY Albumin Lvl 3.3 3.5 - 5.0 08/09/ LOW 2011 [facility] CHEMISTRY Calcium Lvl 8.9 8.5 - 10.5 08/09/ Normal 2011 [facility] CHEMISTRY CO2 28 24 - 32 08/09/ Normal 2011 [facility] CHEMISTRY BUN 21 7 - 22 08/09/ Normal 2011 [facility] CHEMISTRY Glucose Lvl 95 70 - 99 08/09/ Normal <sup>2</sup 2011 >[facility]preti [facility] ve Data: Adult reference range values reflect the clinical guidelines of the [place] [employer] . CHEMISTRY Total Protein 7.3 6.4 - 8.4 08/09/ Normal 2011 [facility] CHEMISTRY ALT 31 0 - 65 08/09/ Normal 2011 [facility] CHEMISTRY Alk Phos 79 39 - 136 08/09/ Normal 2011 [facility] CHEMISTRY AST 19 0 - 37 Normal 2011 [facility] CHEMISTRY Bili Total 0.6 0.2 - 1.3 08/09/ Normal 2011 [facility] CHEMISTRY B/C Ratio 21 6 - 25 08/09/ Normal 2011 [facility] CHEMISTRY AGAP 12.6 10.0 - 20.0 Normal 2011 [facility] CHEMISTRY A/G Ratio 0.8 0.7 - 1.6 08/09/ Normal 2011 [facility] CHEMISTRY Globulin 4.0 2.0 - 4.0 08/09/ Normal 2011 [facility] HEMATOLOGY Basophils # 0.0 0.0 - 0.2 Normal 2011 [facility] HEMATOLOGY Monocytes # 0.6 0.0 - 0.8 Normal 2011 [facility] HEMATOLOGY Lymphocytes # 1.8 1.0 - 5.5 Normal 2011 [facility] HEMATOLOGY Eosinophils # 0.2 0.0 - 0.5 Normal 2011 [facility] HEMATOLOGY Segs 66.9 45.0 - 75.0 08/09/ Normal 2011 [facility] HEMATOLOGY Lymphocytes 22.5 20.0 - 40.0 08/09/ Normal 2011 [facility] HEMATOLOGY Monocytes 7.8 2.0 - 12.0 Normal 2011 [facility] HEMATOLOGY Eosinophils 2.5 0.0 - 4.0 Normal 2011 [facility] HEMATOLOGY Basophils 0.3 0.0 - 1.0 Normal 2011 [facility] HEMATOLOGY Segs-Bands # 5.3 1.5 - 8.1 Normal 2011 [facility] HEMATOLOGY Platelet 251 133 - 450 Normal 2011 [facility] HEMATOLOGY MCH 29.5 27.0 - 31.0 08/09/ Normal 2011 [facility] HEMATOLOGY RDW 14.5 11.5 - 14.5 08/09/ Normal 2011 [facility] HEMATOLOGY MCV 91.6 81.0 - 99.0 Normal 2011 [facility] HEMATOLOGY MCHC 32.2 32.0 - 36.0 08/09/ Normal 2011 [facility] HEMATOLOGY MPV 7.6 7.4 - 10.4 08/09/ Normal 2011 [facility] HEMATOLOGY Hct 37.5 36.0 - 48.0 08/09/ Normal 2011 [facility] HEMATOLOGY WBC 8.0 3.7 - 10.4 08/09/ Normal 2011 [facility] HEMATOLOGY Hgb 12.1 12.0 - 16.0 08/09/ Normal 2011 [facility] HEMATOLOGY RBC 4.09 4.20 - 5.40 08/09/ LOW 2011 [facility] BEDSIDE Gluc POC 78 70 - 99 08/09/ Normal <sup>1</sup GLUCOSE Lifscn 2011 >Interpreti [facility] TESTING ve Data: Upper Reportable Limit: 200 mg/dL. [employer] P[employer] SMEAR Done 06/20/ Medical 2011 Group Pathology Reports No Data Provided for This Section Diagnostic Reports No Data Provided for This Section Consultation Notes No Data Provided for This Section Discharge Summaries No Data Provided for This Section History and Physicals No Data Provided for This Section Vital Signs Vital Sign Value Date Comments [...] 08/10/2011 [facility] Diastolic (mm Hg) 68 08/10/2011 [facility] Systolic (mm Hg) 108 08/10/2011 [facility] Respitory Rate 16 08/10/2011 [facility] Heart Rate 72 08/10/2011 [facility] Systolic (mm Hg) 109 08/10/2011 [facility] Diastolic (mm Hg) 54 08/10/2011 [facility] Respitory Rate 16 08/10/2011 [facility] Heart Rate 76 08/10/2011 [facility] Systolic (mm Hg) 100 08/10/2011 [facility] Diastolic (mm Hg) 49 08/10/2011 [facility] Weight 128.182 08/09/2011 [facility] Height 160.02 cm 08/09/2011 [facility] Encounters Location Location Encounter Encounter Reason Attending ADM DC Status Source Details Type Number For Provider Date Date Visit TREVOR [id number] [place] 08/09 08/09 Discharg [facility] 1 ed [place] [facility] [place] [id number] MORBID [place] 01/21 Active [facility] 0 OBESITY [facility] Lab Report [id number] Karla 04/07 04/07 Markos [address] MD Deanna /2013 [facility] [place] Outpatient [id number] SLEEP LAB 04/08 Active [facility] [place] [facility] [id number] SLEEP LAB 04/13 Active [facility] [place] Outpatient [id number] SLEEP LAB 11/02 Active [facility] [place] Outpatient [id number] SLEEP LAB 11/08 Active [facility] Outpatient [id number] NURSE 11/08 11/09 Medicine 3 VISIT /2017 [facility] [place] [facility] Outpatient [id number] SLEEP LAB 11/07 Active [facility] TREVOR [id number] 789.00 JIMMY Cancel [facility] [id number] MORBID JIMMY Cancel [facility] 2 OBESITY [facility] [facility] Procedures Procedure Code Date Perfomer Comments Source diabetic foot [id number] 02/03/2013 yes Medical check Group diabetic foot [id number] 07/29/2012 yes Medical check Group diabetic foot [id number] 07/22/2012 yes Medical check Group diabetic foot [id number] 06/05/2012 yes Medical check Group mammogram [id number] 04/15/2012 Completed Medical Group diabetic foot [id number] 04/09/2012 yes Medical check Group diabetic foot [id number] 01/16/2012 yes Medical check Group diabetic foot [id number] 09/19/2011 yes Medical check Group mammogram [id number] 04/17/2011 Done [facility] vaginal Pap smear [id number] 06/20/2010 Done Medical results Group Assessment and Plan No Data Provided for This Section Plan of Care No Data Provided for This Section Social History Social History Date Source Social History TypeResponse 11/08/2017 Medical Group Smoking Status Never smoker; Exposure to Tobacco Smoke None; Cigarette Smoking Last 365 Days No; Reg Smoking Cessation Counseling No entered on: 11/08/17 Family History No Data Provided for This Section Advance Directives No Data Provided for This Section Functional Status No Data Provided for This Section
--- OUTSIDE RECORDS SUMMARY | 2018-08-27 06:48 | XMS REPORT | CCD ---
:1940 Author Organization [facility] Care Team Providers Name Role Phone Yonis [...] range values reflect the clinical guidelinesof the [place] [employer].HEMATOLOGY Most recent to oldest [Reference [...]
--- OUTSIDE RECORDS SUMMARY | 2018-08-27 06:48 | XMS REPORT | Continuity of Care Document ---
:1940 Author Organization [facility] Care Team Providers Name Role Phone MD Deanna, Karla Unavailable Unavailable Insurance Providers Payer name Policy type / Policy ID Covered democrat ID Policy [place] Coverage type AARP COB SECONDARY AARP COB SECONDARY MCR MEDICARE PRIMARY MEDICARE B-[place]: SleepOut AARP HEALTHCARE OPTIONS (MEDICARE SUPPLEMENT Encounters Encounter Performer Location Date Lab Report Karla Huerta MD [facility] [place] Allergies, Adverse Reactions, Alerts Type Substance [...] 19, 2011 Active TOPROL XL 50 MG [id number] tab 1 po every am Sep 19, 2011 Active NIASPAN 500 MG CR-TABS tab 1 po at night Sep 19, 2011 Active ATORVASTATIN CALCIUM 20 MG TABS tab 1 po daily Sep 19, 2011 Active GLUCOPHAGE XR 500 MG [id number] tab 2 po in am andtab 1 [...]
[2018-08-27] MEDS ORDERED: NA CHLORIDE 0.9% 1,000 ML ONE (07:26)
[2018-08-27] MEDS ORDERED: POTASSIUM CL SA 10 MEQ TAB PO ONE (09:45)
== END 2018-08-27 09:55 | disposition home or self-care (01) ==
LOC: OR 06:45
PROVIDERS: ATTEND Internal Medicine Gastroenterology
DX: Z86.010 Personal history of colon polyps (principal); D50.9 Iron deficiency anemia, unspecified; Z53.8 Procedure and treatment not carried out for other reasons
CPT/HCPCS: 36415; 84132; 82962; J7030

== ENCOUNTER 2018-09-13 07:38 | Day surgery (SDC) | payer OTHER, MEDICARE ==
--- OUTSIDE RECORDS SUMMARY | 2018-09-13 07:42 | XMS REPORT | Clinical Summary ---
:1940 Author Organization [facility] Address [address] [place] [address] Care Team Providers Name Role Phone Karla [...] Overview: Added automatically from request for surgery [id number] Bilateral carpal tunnel syndrome 01/23/2017 Encounters Date Type Specialty Care Team Description 04/01/2018 Office Visit Orthopedic Surgery Marcelino Ling Bilateral lizzy Muniz MD tunnel syndrome (Primary Dx) 03/27/2018 Surgery General Surgery Marcelino Ling Bilateral endoscopic MD Flavio carpal tunnel release 03/27/2018 Anesthesia Event General Surgery Silvia Aguilera FNP 03/27/2018 [facility] General Surgery Marcelino Ling Encounter MD Flavio [...] Encounter MD tunnel syndrome (Primary Dx) after 09/12/2017 Family History Medical History Relation Name Comments [...] Taken Blood Pressure 112/57 03/27/2018 2:10 PM [employer] Pulse 70 03/27/2018 2:10 PM [employer] Temperature 36.1 C (97 F) 03/27/2018 1:36 PM [employer] Respiratory Rate 22 03/27/2018 1:45 PM [employer] Oxygen Saturation 93% 03/27/2018 2:10 PM [employer] Inhaled Oxygen Concentration - - Weight 120 kg (264 lb) 03/27/2018 10:52 AM [employer] Height 160 cm (5' 3") 03/27/2018 10:52 AM [employer] Body Mass Index 46.77 03/27/2018 10:52 AM [employer] Plan of Treatment Health Maintenance Due Date Last Done Comments COLONOSCOPY SCREENING 1992 SHINGLES VACCINES (#1) 1992 65+ PNEUMOCOCCAL VACCINE (1 of 2 - PCV13) 05/05/2007 INFLUENZA VACCINE 09/12/2018 Implants Implanted Type Area Undercoater Device Shelf Expiration Model / Identifier Date Serial / Lot Multi-Link Vision Stent Stent / Implanted: 2002 (Quantity not on file) / [id number] Procedures Procedure Name Priority Date/Time Associated Diagnosis Comments POC GLUCOSE Routine 03/27/2018 12:52 Results for this PM [employer] procedure are in the results section. ECG 12-LEAD STAT 03/27/2018 11:04 Results for this AM [employer] procedure are in the results section. POC PANEL 4 Routine 03/27/2018 10:33 Results for this AM [employer] procedure are in the results section. MRI CERVICAL SPINE STAT 02/13/2018 11:32 Osteoarthritis of spine Results for this WO CONTRAST AM [employer] with radiculopathy, procedure are in cervical region the results section. ENTEROSCOPY, 10/31/2017 10:00 Anemia, iron deficiency SINGLE BALLOON, AM CDT TRANSORAL, USING OVERTUBE POC GLUCOSE Routine 10/31/2017 9:15 Results for this AM CDT procedure are in the results section. after 09/12/2017 Results POC glucose (03/27/2018 12:52 PM [employer])Only the most recent of2 resultswithin the time period is included. Pathologist [facility] POC glucose 112 (H) 65 - 99 mg/dL [facility] Comment: [facility] Meter ID: [id number] [employer] Machine Operator: Joon Rader Specimen Performing Organization Address City/[facility] Hospital[facility] Phone Number [facility] DEPARTMENT OF PATHOLOGY [id number] [place] [address] AND GENOMIC MEDICINE [facility] [address] ECG 12 lead (03/27/2018 11:04 AM [employer]) Pathologist [facility] Ventricular rate 70 [facility] MUSE Atrial rate 70 [facility] M[facility] AR interval 200 [facility] M[facility] QRSD interval 86 [...] Specimen Narrative Performed At Performing Organization Address City/[facility]/Zipcode Phone Number [facility] MUSE [address] [place] [address] POC panel 4 (03/27/2018 10:33 AM [employer]) POC sodium 148 135 - 148 [facility] mmol/L [facility] POC potassium 3.6 3.5 - 5.0 [facility] mmol/L [facility] POC hematocrit 36 (L) 37 - 47 % [facility] POC glucose 107 (H) 65 - 99 mg/dL [facility] POC hemoglobin 12.2 12.0 - 16.0 [facility] Comment: g/dL [place] Meter ID: [id number] [facility] [employer] Machine Operator: Afsaneh Simon Specimen Blood Performing Organization Address City/State/Zipcode Phone Number [facility] DEPARTMENT OF PATHOLOGY [address] [place] [address] AND GENOMIC MEDICINE [facility] [address] MRI Cervical Spine Wo Contrast (02/13/2018 11:32 AM [employer]) Specimen Narrative Performed At EXAMINATION: MRI CERVICAL [...] facet disease results in mild right and [id number]-[id number]-[id number] left foraminal narrowing. C6-C7: There is posterior [...] of less significant spondylosis are detailed above. [facility]-[id number] Procedure Note Hm Interface, Radiology Results Incoming - 02/13/2018 11:50 AM [employer] EXAMINATION: MRI CERVICAL SPINE WO CONTRAST CLINICAL [...] facet disease results in mild right and okhv-af-uoonchuu left foraminal narrowing. C6-C7: There is posterior [...] of less significant spondylosis are detailed above. [facility]-[id number] Performing Organization Address City/State/Zipcode Phone Number [facility] [address] [place] [address] after 09/12/2017 Insurance Payer Benefit Plan / Subscriber ID Effective Dates Phone Address Type Group MEDICARE MEDICARE PART A xxxxxxxxxxx 2007-Present [place], [place] Medicare AND B AARP AARP SUPPLEMENT xxxxxxxxxxx 2015-Present Commercial Advance Directives Patient has advance care planning documents on file. For more information, please contact:[facility] [address] [place] [address]
--- OUTSIDE RECORDS SUMMARY | 2018-09-13 07:43 | XMS REPORT | CCD ---
:1940 Author Organization [facility] Care Team Providers Name Role Phone Yonis Sadler Referring Provider Allergies, Adverse Reactions, Alerts Substance Reaction Status codeine hot flashes, n/v Active Darvocet A500 hot flashes, n/v Active Vicodin hot flashes, n/v Active
--- OUTSIDE RECORDS SUMMARY | 2018-09-13 07:43 | XMS REPORT | Continuity of Care Document ---
:1940 Author Organization [employer] Care Team Providers Name Role Phone [employer] Unavailable Unavailable Problems Problem Status Onset Classification [...] Problem 05/28/2018 Data Medical migrated Group from [employer] on 07/11/14. Obstructive sleep Active Problem 05/28/2018 Medical apnea, adult Group OBESITY Active Condition 04/07/2013 Medical Group DM Active Condition 04/07/2013 Medical Group HYPERTENSION Active Condition 04/07/2013 Medical Group ATHEROSCLEROSIS OF Active Condition 04/07/2013 Medical AORTA Group HEARTBURN Active [facility] MORBID OBESITY Active [facility] Medications Medication Details Route Status Patient Ordering Order Source Instructions Provider Date BUMETANIDE 1 MG 1 or 2 p.o. Active 07/22[facility] Medical TABS q.a.m. 2012 Group CEFTIN 500 MG one p.o. Active 06/05[facility] Medical TABS b.i.d. 2012 Group DEXPAK 10 DAY as directed Active 06/05[facility] Medical 1.5 MG TABS 2012 Group LISINOPRIL-HYDRO 1 QD Active 04/09[facility] Medical CHLOROTHIAZIDE 2012 Group 11/23.5) METFORMIN HCL 1 TID Active 04/09[facility] Medical 500 MG TABS 2012 Group SPIRONOLACTONE 1 QD Active 04/09[facility] Medical 25 MG TABS 2012 Group LEVOXYL 125 MCG tab 1 po daily Active 04/09[facility] Medical TABS 2012 Group (LEVOTHYROXINE SODIUM) D CAPS 1 MONTHLY Active 04/09[facility] Medical 2012 Group PLAVIX 75 MG tab 1po every Active 09/18[facility] Medical TABS morning 2011 Group TOPROL XL 50 MG tab 1 po every Active 09/18[facility] Medical [id number] am 2011 Group NIASPAN 500 MG tab 1 po at Active 09/18[facility] Medical CR-TABS night 2011 Group ATORVASTATIN tab 1 po daily Active Medical CALCIUM 20 MG 2011 Group TABS GLUCOPHAGE XR tab 2 po in am Active Medical 500 MG [id number] andtab 1 po 2011 Group in pm [...] IV 500 mL 40 ml/hr, Longer 2011 [facility] Infuse over: Active 12.5 hr, Route: IV, Dosing Weight 128.182 kg, Total Volume: 500, Start date: 08/10/11 14:37:00, Duration: 30 day, Stop date: 09/09/11 14:36:00 Fish Oil 1000 mg 1,000 mg, 1 PO Active oral capsule cap, PO, BID, 2011 [facility] Substitution Allowed, CAP Levoxyl 150 mcg 150 microgram, PO Active (0.15 mg) oral 1 tab, PO, 2011 tablet Daily, 60 tab, Substitution Allowed, TAB Klor-Con M20 20 mEq, 1 tab, PO Active oral tablet, PO, BID, 180 2011 [facility] extended release tab, Substitution Allowed, ERTAB glimepiride 4 mg 4 mg, PO, PO Active oral tablet Daily, 90 tab, 2011 [facility] Substitution Allowed, TAKE 1 IN AM, TABTAKE 1 IN AM metFORmin 500 mg 500 mg, 1 tab, PO Active oral tablet PO, BID, 60 2011 [facility] tab, Substitution Allowed, TAKE 2 IN AM, 1 AT NIGHT, TABTAKE 2 IN AM, 1 AT NIGHT lisinopril 20 mg, PO, PO Active Daily, 2011 [facility] Substitution Allowed, TAKE 1/2 TAB DAILY, TABTAKE 1/2 TAB DAILY Lipitor 20 mg 20 mg, 1 tab, PO Active oral tablet PO, Daily, 90 2011 [facility] tab, Substitution Allowed, TAB Niaspan ER 500 500 mg, 1 tab, PO Active mg oral tablet, PO, Bedtime, 2011 [facility] extended release 90 tab, Substitution Allowed, ERTAB Plavix 75 mg 75 mg, 1 tab, PO Active oral tablet PO, Daily, 90 2011 [facility] tab, Substitution Allowed, TAB metoprolol 50 mg 50 mg, 1 tab, PO Active oral tablet PO, BID, 180 2011 [facility] tab, Substitution Allowed, TAB Allergies, Adverse Reactions, [...] 3.6 3.5 - 5.1 08/09/ Normal 2011 [facility] CHEMISTRY Sodium Lvl 144 135 - 145 08/09/ Normal 2011 [facility] CHEMISTRY Creatinine 1.0 0.5 - 1.4 08/09/ Normal Lvl 2011 [facility] CHEMISTRY Chloride Lvl 107 95 - 109 08/09/ Normal 2011 [facility] CHEMISTRY Albumin Lvl 3.3 3.5 - 5.0 08/09/ LOW 2011 [facility] CHEMISTRY Calcium Lvl 8.9 8.5 - 10.5 08/09/ Normal 2011 [facility] CHEMISTRY CO2 28 24 - 32 08/09/ Normal 2011 [facility] CHEMISTRY BUN 21 7 - 22 08/09/ Normal 2011 [facility] CHEMISTRY Glucose Lvl 95 70 - 99 08/09/ Normal <sup>2</sup 2011 >[facility] ve Data: Adult reference range values reflect the clinical guidelines of the [place] [employer] . CHEMISTRY Total Protein 7.3 6.4 - 8.4 08/09/ Normal 2011 [facility] CHEMISTRY ALT 31 0 - 65 08/09/ Normal 2011 [facility] CHEMISTRY Alk Phos 79 39 - 136 08/09/ Normal 2011 [facility] CHEMISTRY AST 19 0 - 37 Normal 2011 [facility] CHEMISTRY Bili Total 0.6 0.2 - 1.3 08/09/ Normal 2011 [facility] CHEMISTRY B/C Ratio 21 6 - 25 08/09/ Normal 2011 [facility] CHEMISTRY AGAP 12.6 10.0 - 20.0 Normal 2011 [facility] CHEMISTRY A/G Ratio 0.8 0.7 - 1.6 08/09/ Normal 2011 [facility] CHEMISTRY Globulin 4.0 2.0 - 4.0 08/09/ Normal 2011 [facility] HEMATOLOGY Basophils # 0.0 0.0 - 0.2 Normal 2011 [facility] HEMATOLOGY Monocytes # 0.6 0.0 - 0.8 Normal 2011 [facility] HEMATOLOGY Lymphocytes # 1.8 1.0 - 5.5 Normal 2011 [facility] HEMATOLOGY Eosinophils # 0.2 0.0 - 0.5 Normal 2011 [facility] HEMATOLOGY Segs 66.9 45.0 - 75.0 08/09/ Normal 2011 [facility] HEMATOLOGY Lymphocytes 22.5 20.0 - 40.0 08/09/ Normal 2011 [facility] HEMATOLOGY Monocytes 7.8 2.0 - 12.0 Normal 2011 [facility] HEMATOLOGY Eosinophils 2.5 0.0 - 4.0 Normal 2011 [facility] HEMATOLOGY Basophils 0.3 0.0 - 1.0 Normal 2011 [facility] HEMATOLOGY Segs-Bands # 5.3 1.5 - 8.1 Normal 2011 [facility] HEMATOLOGY Platelet 251 133 - 450 Normal 2011 [facility] HEMATOLOGY MCH 29.5 27.0 - 31.0 08/09/ Normal 2011 [facility] HEMATOLOGY RDW 14.5 11.5 - 14.5 08/09/ Normal 2011 [facility] HEMATOLOGY MCV 91.6 81.0 - 99.0 Normal 2011 [facility] HEMATOLOGY MCHC 32.2 32.0 - 36.0 08/09/ Normal 2011 [facility] HEMATOLOGY MPV 7.6 7.4 - 10.4 08/09/ Normal 2011 [facility] HEMATOLOGY Hct 37.5 36.0 - 48.0 08/09/ Normal 2011 [facility] HEMATOLOGY WBC 8.0 3.7 - 10.4 08/09/ Normal 2011 [facility] HEMATOLOGY Hgb 12.1 12.0 - 16.0 08/09/ Normal 2011 [facility] HEMATOLOGY RBC 4.09 4.20 - 5.40 08/09/ LOW 2011 [facility] BEDSIDE Gluc POC 78 70 - 99 08/09/ Normal <sup>1</sup GLUCOSE Lifscn 2011 >Interpreti [facility] TESTING ve Data: Upper Reportable Limit: 200 mg/dL. Cotton Presser PAP SMEAR Done 06/20/ Medical 2011 Group [...] 08/10/2011 [facility] Diastolic (mm Hg) 68 08/10/2011 [facility] Systolic (mm Hg) 108 08/10/2011 [facility] Respitory Rate 16 08/10/2011 [facility] Heart Rate 72 08/10/2011 [facility] Systolic (mm Hg) 109 08/10/2011 [facility] Diastolic (mm Hg) 54 08/10/2011 [facility] Respitory Rate 16 08/10/2011 [facility] Heart Rate 76 08/10/2011 [facility] Systolic (mm Hg) 100 08/10/2011 [facility] Diastolic (mm Hg) 49 08/10/2011 [facility] Weight 128.182 08/09/2011 [facility] Height 160.02 cm 08/09/2011 [facility] Encounters Location Location Encounter Encounter Reason Attending ADM DC Status Source Details Type Number For Provider Date Date Visit TREVOR [id number] [place] 08/09 08/09 Discharg [facility] 1 [place] [facility] [place] [id number] MORBID [place] 01/21 Active [facility] 0 OBESITY [facility] Lab Report [id number] Karla 04/07 04/07 Markos [id number] MD Deanna /2013 [facility] Out[facility] [id number] SLEEP LAB 04/08 Active [facility] Outpatient [id number] SLEEP LAB 04/13 Active [facility] Outpatient [id number] SLEEP LAB 11/02 Active [facility] Outpatient [id number] SLEEP LAB 11/08 Active [facility]patient [id number] NURSE 11/08 11/09 Medicine 3 VISIT /2017 [facility] Outpatient [id number] SLEEP LAB 11/07 Active [facility] TREVOR [id number] 789.00 JIMMY Cancel [facility] [id number] MORBID JIMMY [facility] 2 OBESITY [facility] Procedures Procedure Code Date Perfomer Comments Source diabetic foot [id number] 02/03/2013 yes Medical check Group diabetic foot [id number] 07/29/2012 yes Medical check Group diabetic foot [id number] 07/22/2012 yes Medical check Group diabetic foot [id number] 06/05/2012 yes Medical check Group mammogram [id number] 04/15/2012 Completed Medical Group diabetic foot [id number] 04/09/2012 yes Medical check Group diabetic foot [id number] 01/16/2012 yes Medical check Group diabetic foot [id number] 09/19/2011 yes Medical check Group mammogram [id number] 04/17/2011 Done Medical [facility] vaginal Pap smear [id number] 06/20/2010 Done Medical results Group Assessment and [...]
--- OUTSIDE RECORDS SUMMARY | 2018-09-13 07:43 | XMS REPORT | CCD ---
:1940 Author Organization [facility] Care Team Providers Name [...] range values reflect the clinical guidelinesof the [place] [employer].HEMATOLOGY Most recent to oldest [Reference [...]
--- OUTSIDE RECORDS SUMMARY | 2018-09-13 07:43 | XMS REPORT | Continuity of Care Document ---
:1940 Author Organization [facility] Care Team Providers Name Role Phone MD Deanna, Karla Unavailable Unavailable Insurance Providers Payer name Policy type / Policy ID Covered alliance party ID Policy [place] Coverage type AARP COB SECONDARY AARP COB SECONDARY MCR MEDICARE PRIMARY MEDICARE [place]: [employer] AARP HEALTHCARE OPTIONS (MEDICARE SUPPLEMENT Encounters Encounter Performer Location Date Lab Report Karla Huerta MD [facility] [place] Allergies, Adverse Reactions, Alerts Type Substance [...] 19, 2011 Active TOPROL XL 50 MG [id number] tab 1 po every am Sep 19, 2011 Active NIASPAN 500 MG CR-TABS tab 1 po at night Sep 19, 2011 Active ATORVASTATIN CALCIUM 20 MG TABS tab 1 po daily Sep 19, 2011 Active GLUCOPHAGE XR 500 MG [id number] tab 2 po in am andtab 1 [...]
[2018-09-13] MEDS ORDERED: NA CHLORIDE 0.9% 250 ML ONE ×2 (08:14→10:54)
== END 2018-09-13 15:53 | disposition home or self-care (01) ==
LOC: DS 07:38
PROVIDERS: ATTEND Internal Medicine Hematology & Oncology
DX: D50.0 Iron deficiency anemia secondary to blood loss (chronic) (principal); D63.8 Anemia in other chronic diseases classified elsewhere
CPT/HCPCS: 36415; 86900; 86850; 86901; 85018; 85014; 36430; P9016 ×2